=== PATIENT | male | born 1945 | race Caucasian/White ===

== ENCOUNTER 2016-12-27 05:25 | Day surgery (SDC) | payer OTHER ==
[2016-12-27] MEDS ORDERED: METOPROLOL TARTRATE 25 MG TAB PO PRN (05:45)
[2016-12-27] MEDS ORDERED: CHLORHEXIDINE GLUCONATE 2 % 1 PACK (2 CLOTHS) TOPICAL PRN (05:45)
[2016-12-27] MEDS ORDERED: INSULIN HUMAN REGULAR 1,000 UNITS/10 ML VIAL SQ PRN (05:45)
[2016-12-27] MEDS ORDERED: SODIUM CHLORID 0.9% 500 ML IV PRN (05:45)
[2016-12-27] MEDS ORDERED: POVIDONE IODINE 5% (ANTISEPSIS KIT) 4 APPLICATIONS EACH NARE PRN (05:45)
[2016-12-27] MEDS ORDERED: LACTATED RINGER'S 1000 ML IV PRN (05:45)
[2016-12-27] MEDS ORDERED: WARF-23 PO (06:06)
[2016-12-27] MEDS ORDERED: CARV6.252 PO (06:06)
[2016-12-27] MEDS ORDERED: OMEP20TA PO (06:06)
[2016-12-27] MEDS ORDERED: FURO40TA PO (06:06)
[2016-12-27] MEDS ORDERED: SIMV20TA PO (06:06)
[2016-12-27] MEDS ORDERED: ALBU6.7H INH (06:06)
[2016-12-27] MEDS ORDERED: BENA25TA3 PO (06:06)
[2016-12-27] MEDS ORDERED: WARF-21 PO (06:06)
[2016-12-27] MEDS ORDERED: TRIA0.022 TOPICAL (06:06)
--- NOTE | 2016-12-27 07:32 | EKG ---
Date Performed: 12/27/2016 Time Performed: 06:23:24 PTAGE: 70 years EKG: Sinus rhythm . Prolonged QT interval Poor R wave progression - probable normal variant Inferior/lateral ST-T fraser es are nonspecific Borderline ECG NO PREVIOUS TRACING DOCTOR: Yaw Guidry Interpretating Date/Time 12/27/2016 07:31:40
[2016-12-27] MEDS ORDERED: PROPOFOL 200 MG/20 ML AMP IV ONE (09:53)
--- NOTE | 2017-01-03 08:04 | ETE ---
Study Study Date:12/27/2016 STUDY CONCLUSIONS SUMMARY - Left ventricle: The cavity size was normal. Wall thickness was normal. Systolic function was moderately to severely reduced. The estimated ejection fraction was in the range of 30% to 35%. Diffuse hypokinesis. - Aortic valve: Valve heavily calcified and "shaggy" in appearance. Old vegetation cannot be excluded. Cusp separation was reduced. Cannot exclude vegetation. Transvalvular velocity was increased less than expected, due to low cardiac output. There was moderate to severe stenosis. Mean gradient: 24mm Hg (S). Valve area: 0.7cm^2. Valve area: 0.55cm^2 (Vmax). - Mitral valve: No evidence of vegetation. Mild regurgitation. - Left atrium: No evidence of thrombus in the atrial cavity or appendage. - Right atrium: No evidence of thrombus in the atrial cavity or appendage. - Tricuspid valve: No evidence of vegetation. - Pulmonic valve: No evidence of vegetation. If LV function is below 40, please consider prescribing an ACEI or ARB or document rationale for non-use. PROCEDURE DATA Consent: The risks, benefits, and alternatives to the procedure were explained to the patient and informed consent was obtained. Procedure: Initial setup. The patient was brought to the laboratory in the fasting state. Intravenous access was obtained. Surface ECG leads and pulse oximetric signals were monitored. Sedation. Deep sedation was administered by anesthesiology. Transesophageal echocardiography. Topical anesthesia was obtained using viscous lidocaine. A transesophageal probe was inserted by the attending mortgage originator. Image quality was good. Study completion: All IVs inserted during the procedure were removed. The patient tolerated the procedure well. There were no complications. Transesophageal echocardiography. 2D, complete spectral Doppler, and color Doppler. CARDIAC ANATOMY LEFT VENTRICLE: The cavity size was normal. Wall thickness was normal. Systolic function was moderately to severely reduced. The estimated ejection fraction was in the range of 30% to 35%. Diffuse hypokinesis. AORTIC VALVE: Valve heavily calcified and "shaggy" in appearance. Old vegetation cannot be excluded. Trileaflet; severely thickened, moderately calcified leaflets. Cusp separation was reduced. Cannot exclude vegetation. Doppler: Transvalvular velocity was increased less than expected, due to low cardiac output. There was moderate to severe stenosis. No significant regurgitation. Valve area: 0.7cm^2. Valve area: 0.55cm^2 (Vmax). Mean gradient: 24mm Hg (S). Peak gradient: 38mm Hg (S). Aorta: - There was no atheroma. There was no evidence for dissection. Aortic root: The aortic root was not dilated. Ascending aorta: The ascending aorta was normal in size. Aortic arch: The aortic arch was normal in size. Descending aorta: The descending aorta was normal in size. MITRAL VALVE: Structurally normal valve. Leaflet separation was normal. No evidence of vegetation. Doppler: Mild regurgitation. LEFT ATRIUM: The atrium was normal in size. No evidence of thrombus in the atrial cavity or appendage. The appendage was morphologically a left appendage, multilobulated, and of normal size. Emptying velocity was normal. RIGHT VENTRICLE: The cavity size was normal. Wall thickness was normal. Systolic function was normal. PULMONIC VALVE: Structurally normal valve. No evidence of vegetation. TRICUSPID VALVE: Structurally normal valve. Leaflet separation was normal. No evidence of vegetation. Doppler: Trace regurgitation. PULMONARY ARTERY: The main pulmonary artery was normal-sized. RIGHT ATRIUM: The atrium was normal in size. No evidence of thrombus in the atrial cavity or appendage. The appendage was morphologically a right appendage. PERICARDIUM: There was no pericardial effusion. BASIC MEASUREMENTS ADULT NORMAL Aortic valve Leaflet separation 18 mm 1526 BASIC MEASUREMENTS ADULT NORMAL Aortic valve Leaflet separation 18 mm 15-26 DOPPLER MEASUREMENTS ADULT NORMAL Aortic valve Peak velocity, S 310 cm/s Mean velocity, S 228 cm/s VTI, S 64.1 cm Mean gradient, S 24 mm Hg Peak gradient, S 38 mm Hg Valve area 0.7 cm^2 Valve area, Vmax 0.55 cm^2 LEGEND: Mean values are shown as u=mean value. Asterisk (*) alvarado values outside specified normal range. Prepared and signed by Ludin Rosenbaum [id number]
== END 2016-12-27 09:10 | disposition home or self-care (01) ==
LOC: HSDC 05:25 → HDIC 05:25 → HSDC 09:10
PROVIDERS: ATTEND Nuclear Medicine Nuclear Cardiology
DX: I35.0 Nonrheumatic aortic (valve) stenosis (principal); I47.2 Ventricular tachycardia; I42.9 Cardiomyopathy, unspecified; I50.20 Unspecified systolic (congestive) heart failure; I26.99 Other pulmonary embolism without acute cor pulmonale; I10 Essential (primary) hypertension; Z79.01 Long term (current) use of anticoagulants; E78.5 Hyperlipidemia, unspecified
CPT/HCPCS: 93005; 93312; 93320; 93325

== ENCOUNTER 2017-01-29 05:41 | Day surgery (SDC) | payer OTHER ==
[~2017-01-29] VITALS: Ht 177.8 cm; Wt 118.2 kg
[~2017-01-29 05:41] MED LIST: ALBU6.7H INH; BENA25TA3 PO; CARV6.252 PO; FURO40TA PO; OMEP20TA PO; SIMV20TA PO; TRIA0.022 TOPICAL; WARF-21 PO; WARF-23 PO
[2017-01-29 06:56] LABS: AUTOMATED NEUTROPHIL # 3.3 TH/MM3 (1.8-7.7); BASOPHIL % 0.3 % (0.0-2.0); EOSINOPHIL # 0.1 TH/MM3 (0-0.4); EOSINOPHIL % 1.8 % (0.0-4.0); HEMATOCRIT 37.5 % (39.0-51.0); HEMO FLAGS DIFF FINAL; LYMPH % 29.6 % (9.0-44.0); LYMPHOCYTE # 1.6 TH/MM3 (1.0-4.8); MEAN CELL VOLUME 81.8 FL (80.0-100.0); MEAN CORPUSCULAR HEMOGLOBIN 27.9 PG (27.0-34.0); MEAN CORPUSCULAR HGB CONC 34.1 % (32.0-36.0); MONO % 8.2 % (0.0-8.0); NEUT % 60.1 % (16.0-70.0); PLATELET COUNT 176 TH/MM3 (150-450); RED BLOOD COUNT 4.58 MIL/MM3 (4.50-5.90); RED CELL DISTRIBUTION WIDTH 14.9 % (11.6-17.2); WHITE BLOOD COUNT 5.5 TH/MM3 (4.0-11.0)
[2017-01-29 07:05] LABS: APTT (PATIENT) 28.5 SEC (24.3-30.1); INTERNATIONAL NORMALIZED RATIO 1.1 RATIO; PROTHROMBIN TIME - PATIENT 11.9 SEC (9.8-11.6)
[2017-01-29 07:14] LABS: BICARBONATE 28.5 MEQ/L (21.0-32.0); POTASSIUM 3.5 MEQ/L (3.5-5.1)
[2017-01-29 07:47] VITALS: BP 114/78; PULSE 73; RESP 16; TEMP 97.9; O2SAT 100
[2017-01-29] MEDS ORDERED: DIPH25CA PO (07:53)
[2017-01-29] MEDS ORDERED: diphenhydrAMINE HCL 50 MG CAP ONE (09:19)
[2017-01-29] MEDS ORDERED: HEPARIN-NS/PF INJ 500 ML ONE (09:31)
[2017-01-29] MEDS ORDERED: MIDAZOLAM HCL 2 MG/2 ML VIAL ONE (09:32)
--- NOTE | 2017-01-29 11:23 | CATHPROC ---
[employer] HIS Report Study Information Study Number Admission Scheduled Start Study Start [id number] Jan 29 2017 5:41AM 01/29/2017 Jan 29 2017 8:53AM [place] Service Cardiac Catheterization Admit Source Facility Department Other [facility] - Principal Accounts Clerk Physician and Clinical Staff Initial MD Marshall, Felipe Striker Offnicholas Colmenares RN, Thomas Other cathlab, cathlab Recorder Jude Escalona RCIS(BS) Scrub Carly Freed,RT(R) Procedures Performed Procedure Location (Site) Vessel Name Coronary Angiograms LCA Left Coronary Coronary Angiograms RCA Right Coronary Wire insertion Fem Art (right) Femoral Art Equipment Time Pile Driver Operator Description Size Mfg Part Number Used/Scraped PERCLOSE, PRO GLIDE CLOSER 10:48 [employer] FR 6 21358 *[id number] Used DEVICE PERCLOSE, PRO GLIDE CLOSER 10:48 [employer] FR 6 [id number] *[id number] Used DEVICE [id number] 09:33 ESTRELLA CAGLE SWAN GABRIELLE CATHETER FR 7 Used *[id number] TRANSDUCER, TRUWAVE [id number] 09:33 ESTRELLA CAGLE * Used W/STOCKCOCK *[id number] TRANSDUCER, TRUWAVE [id number] 09:33 ESTRELLA CAGLE * Used W/STOCKCOCK *[id number] 10:48 [employer] VASCADE, FR6 CLOSURE SYSTEM FR 6\7 Used *[id number]-502-10.0- INTRODUCER SET, 09:33 [employer] FR 5 SC-NT-U-SST Used MICROPUNCTURE, STIFFENED *[id number] 534-545T *[id number] 534-546T *1873220 534-548T *[id number] 534-520T *[id number] 534-521T *[id number] WIRE, HYDROSTEER 260CM [id number] 10:36 DAIG/ST. [employer] 260CM Used STRAIGHT GLIDE *[id number] WIRE, AMPLATZ SUPER STIFF 10:30 [employer] .035 31372 *[id number] Used STRT [id number] 09:33 [employer] INDUSTRIES PACK, CCL CUSTOM * Used *[id number] PSI-6F- 09:56 [employer] MEDICAL SHEATH, FR6.5 PRELUDE 11CM FR 6.5 038ACT Used *[id number] [id number]-6F-11- 10:08 [employer] MEDICAL SHEATH, FR6.5 PRELUDE 11CM FR 6.5 038ACT Used *[id number] 10:15 [employer] MEDICAL WIRE, 3MMJ .025 * Used *[id number] 09:33 [employer] MEDICAL WIRE, 3MMJ .035 180CM 180CM Used *[id number] 09:33 [employer]IC MANIFOLD, 2 PORT * Used *[id number] 09:33 [employer] MANIFOLD, 4 PORT * Used *0395550 09:33 [employer] OMNIPAQUE, 350 MG, 150ML 150ML [id number] Used [id number] 09:33 [facility] BLANKET,WARM AIR CCL * Used *[id number] SHEATH, FR6 TRANSRADIAL 09:56 [employer] FR 6 RM*[id number] Used SLENDER 10CM 09:33 [employer] MEDICAL SHEATH, FR7 TERUMO (10CM) FR 7 [id number] Used 10:00 [employer] PIGTAIL DUAL LUMEN CATHETER FR 6 5540 *[id number] Used Equipment Model, Serial, Lot Number and Expiration Data Description Model Number Serial Number Lot Number Expiration Da te SHEATH, FR6.5 PRELUDE 11CM [id number] 12-16-2019 SHEATH, FR6.5 PRELUDE 11CM [id number] 12-16-2019 History: Current Medications Medication Dosage/Unit Route Frequency Last Date/Time Taken Statins (any) Beta Ang Coumadin History: Allergies Allergy Reaction Losartan History: Risk Factors Family History of Hypertension Dyslipidemia Previous KS Previous Heart Failure Premature CAD Yes Yes Yes No Yes Prior Valve Prior PCI Prior CABG Surgery No No No Cerebrovascular Peripheral Artery Chronic Lung On Dialysis Diabetes Disease Disease Disease No No No No No History: Stress Tests Stress or Imaging Studies Performed No History: Other Disease Selection Items HTN History: Other Current Smoker Method Quit Packs a Day Years Used Pack Years No Cigarettes 40 Years Ago 1 7 7 Labs Hgb (g/dl) Hct (%) WBC (l/cumm) Platelets (thousands) 12.00-18.00 37.00-55.00 4.80-10.80 140.00-450.00 12.8 37.5 5.5 176 Glucose (mg/dl) BUN (mg/dl) Creatinine (mg/dl) BUN:Creatinine (1:x) 60.00-110.00 8.00-20.00 0.10-9.00 10.00-20.00 98 15 0.9 16.7 Na (meq/l) K (meq/l) 138.00-146.00 3.80-5.10 141 3.5 INR (PTT:PT) 0.50-2.00 1.1 CPK-MB (ng/ML) 0.00-7.00 Not Drawn Medication Medication Total Dose (Bolus/Oral) Medication Total Dosage/Unit 1% XYLOCAINE 20 mL FENTANYL 100 mcg NTG (IC) 200 mcg VERSED 2 mg Medications (Bolus/Oral) Medication Time Given Dosage/Unit Administered By Reason VERSED 01/29/2017 10:03:18 AM 2 mg Darrian WILKERSON, Thomas 2 mg VERSED given in lab by Thomas Colmenares RN in Left Wrist via Peripheral IV. Ordered by Mary Marshall. FENTANYL 01/29/2017 10:03:28 AM 50 mcg Thomas Colmenares RN 50 mcg FENTANYL given in lab by Thomas Colmenares RN in Left Wrist via Peripheral IV. Ordered by Felipe Stroud. 1% XYLOCAINE 01/29/2017 10:04:32 AM 20 mL Felipe Marshall 20 mL 1% XYLOCAINE given in lab by Felipe Marshall in Right Groin via Subcutaneous. Ordered by Felipe Jain. NTG (IC) 01/29/2017 10:24:17 AM 200 mcg Felipe Marshall 200 mcg NTG (IC) given in lab by Felipe Marshall via Intra-coronary. Ordered by Felipe Marshall. FENTANYL 01/29/2017 10:48:00 AM 50 mcg Felipe Marshall 50 mcg FENTANYL given in lab by Felipe Marshall in Left Wrist via Peripheral IV. Ordered by Felipe Smith. Medication (Drip) Medication Time Given Dosage/Unit Concentration/Unit Diluent (ml) Solution IV Solutions 01/29/2017 9:26:51 AM 0 mL (IV) 500 NaCl .9 Patient arrived on IV Solutions given by dario bishop in Left Wrist via Peripheral IV. Pump/Drip Flow = 20 ml/hr using NaCl .9. Ordered by Felipe Jain. Initial Case Assessment Cardiovascular HR Rhythm NIBP Chest Pain 70 sinus 143/84 0 Edema Present Skin color Skin None Normal Warm Dry Circulatory - Right Pulses Dorsalis Pedis Femoral 1 2 Scale (0,1,2,3,4,d) Circulatory - Left Pulses Dorsalis Pedis Femoral 1 2 Scale (0,1,2,3,4,d) Neurological State Oriented to time-place- Alert Moves all extremities person Respiration - General Respiration Rate SpO2 (%) (B/min) 15 99 Final Case Assessment Cardiovascular HR Rhythm NIBP Chest Pain 68 sinus 119/77 0 Edema Present Skin color Skin None Normal Warm Dry Circulatory - Right Pulses Dorsalis Pedis Femoral 1 2 Scale (0,1,2,3,4,d) Circulatory - Left Pulses Dorsalis Pedis Femoral 1 2 Scale (0,1,2,3,4,d) Neurological State Oriented to time-place- Alert Moves all extremities person Respiration - General Respiration Rate SpO2 (%) (B/min) 15 99 Chronological Log Time Study Chronological Log 9:26:41 Patient arrived via Bed. 9:26:42 Patient Name, D.O.B, / Armband Verified By R.N. 9:26:43 Consent signed by the physician and the patient and verified by the Principal Accounts Clerk staff. 9:26:43 Pre-op and post- op instructions given; patient acknowledges understanding of instructions. Verbal Stimulation=~VERBAL~ Physical Stimulation=~PHYSICAL~ Airway=~AIRWAY~ Respiration=~RESPIR ATION~ 9:26:44 TOTAL=~TOTAL~. (0=absent, 1=limited, 2=present) 9:26:45 Presedation assessment performed by Principal Accounts Clerk RN. 9:26:45 Immediate Presedation assesment performed by physician. 9:26:46 Patient has been NPO for More than 6Hrs. 9:26:47 Skin Breakdown- 9:26:48 Patient Warmer Placed on the Table. 9:26:48 Cici Prominences Protected 9:26:50 A # 20 IV was noted in the Wrist (left). Grade = 0 Patient arrived on IV Solutions given by cathlab cathashlie in Left Wrist via Peripheral IV. Pump /Drip Flow = 20 ml/hr 9:26:51 using NaCl .9. Ordered by Felipe Marshall. 9:26:51 History and physical on the chart or being dictated. Vitals capture started with the following parameters, Patient=Adult, Interval=15 min, Initial P ikrnlfg=155 mmHg, 9:32:10 Deflation Rate=5 mmHg 9:32:11 Reference ECG taken Assessment: Initial Case, HR=70 BPM, Rhythm=sinus, DRUK=398/84 mmhg, Chest Pain=0, Edema=None, Color=Normal, Skin = Warm, Dry Right Pulses: Christian Ped=1, Femoral=2 9:32:15 Left Pulses: Christian Ped=1, Femoral=2 Neurological: State=Alert, Ox3, NI Respiration: Resp=15 B/min, SpO2=99 % 9:33:39 HR=73 bpm, YXTU=340/84 mmhg, VxI6=006.0 %, Resp=8 B/min, Pain=0, Brendon=10, Hicks=2 9:37:47 HR=68 bpm, ZTRO=209/81 mmhg, SpO2=95 %, Resp=15 B/min, Pain=0, Brendon=10, Hicks=2 9:42:48 HR=68 bpm, IPJU=676/79 mmhg, SpO2=99.0 %, Resp=16 B/min, Pain=0, Brendon=10, Hicks=2 9:47:47 HR=74 bpm, GNIC=093/78 mmhg, SpO2=99 %, Resp=15 B/min, Pain=0, Brendon=10, Hicks=2 9:48:19 Bilateral groins prepped with 2% chlorhexidine, and with a 3 min. waiting time. 9:51:02 MD arrived. 9:51:16 Pressure channel 1 zeroed. 9:52:48 HR=70 bpm, VJDL=383/78 mmhg, SpO2=99.0 %, Resp=14 B/min, Pain=0, Brendon=10, Hicks=2 9:54:16 Immediate Presedation assesment performed by physician. 9:57:47 HR=71 bpm, LQEA=989/83 mmhg, SpO2=98.0 %, Resp=18 B/min, Pain=0, Brendon=10, Hicks=2 9:58:28 Pressure channel 2 zeroed. 10:02:53 HR=74 bpm, DTVJ=233/79 mmhg, SpO2=98.0 %, Resp=17 B/min, Pain=0, Brendon=10, Hicks=2 10:03:18 2 mg VERSED given in lab by Thomas Colmenares RN in Left Wrist via Peripheral IV. Ordered by Felipe Hickey. 10:03:28 50 mcg FENTANYL given in lab by Thomas Colmenares RN in Left Wrist via Peripheral IV. Ordered by Felipe Marshall. Time Out. Correct patient, correct procedure,correct physician, ,power injector not loaded with contrast with surgical 10:04:30 team present. Time Out Concurred by , individual staff in procedure 10:04:31 Case Start 20 mL 1% XYLOCAINE given in lab by Felipe Marshall in Right Groin via Subcutaneous. Ordered b vasu Marshall, 10:04:32 Felipe. 10:07:14 Access site was Right Femoral Artery. 10:07:52 HR=71 bpm, WSVB=826/74 mmhg, SpO2=93.0 %, Resp=19 B/min, Pain=0, Brendon=10, Hicks=2 10:08:09 A SHEATH, FR6.5 PRELUDE 11CM FR 6.5 was advanced into the Fem Art (right) using the Percuta neous technique. 10:10:25 Access site was Right Femoral Vein. 10:10:55 A SHEATH, FR7 TERUMO (10CM) FR 7 was advanced into the Fem Art (right) using the Percutaneo us technique. 10:11:07 A SWAN GABRIELLE CATHETER FR 7 was inserted via Fem Vein (right) 10:12:44 HR=74 bpm, UYGW=371/75 mmhg, SpO2=93 %, Resp=19 B/min, Pain=0, Brendon=10, Hicks=2 10:15:00 A WIRE, 3MMJ .025 * was inserted via Fem Art (right). Recorded Pressure: PCW, HR=70, Condition=Condition 1 10:17:03 (Pulmonary Capillary Wedge) PCW 1715/14 Recorded Pressure: MPA, HR=71, Condition=Condition 1 10:17:21 (Main Pulmonary Artery) MPA 36/17/25 10:17:50 HR=71 bpm, QRXL=562/69 mmhg, SpO2=93.0 %, Resp=14 B/min, Pain=0, Brendon=10, Hicks=2 10:18:02 Saturation: Site=PA (Pulmonary Artery) , O2=72.9 %, Hgb=12.8 gm/dl, Condition=Condition 1. Used in calculation. 10:18:09 Saturation: Site=Ao (Aorta) , O2=94.3 %, Hgb=12.8 gm/dl, Condition=Condition 1. Used in tommy culation. Recorded Pressure: RV, HR=85, Condition=Condition 1 10:18:30 (Right Ventricle) RV 39/7/14 Recorded Pressure: RA, HR=74, Condition=Condition 1 10:18:44 (Right Atrium) RA 1311/10 10:18:53 Saturation: Site=RA (Right Atrium) , O2=75.9 %, Hgb=12.8 gm/dl, Condition=Condition 1. Used in calculation. 10:19:20 [place] Gabrielle Catheter Removed A JR 4.0 INFINITI CATHETER FR 5 was advanced over a wire. OMNIPAQUE, 350 MG, 150ML 150ML was us ed for 10:20:57 injections. 10:22:08 The RCA was injected and visualized at various angles. OMNIPAQUE, 350 MG, 150ML 150ML used . Recorded Pressure: Ao, HR=69, Condition=Condition 1 10:22:30 (Aorta) Ao 109/68/84 10:22:49 HR=72 bpm, CAEM=887/72 mmhg, SpO2=94.0 %, Resp=19 B/min, Pain=0, Brendon=10, Hicks=2 10:24:17 200 mcg NTG (IC) given in lab by Felipe Marshall via Intra-coronary. Ordered by Felipe Stroud. 10:25:38 Catheter was removed A JL 4.0 INFINITI CATHETER FR 5 was advanced over a wire. OMNIPAQUE, 350 MG, 150ML 150ML was us ed for 10:25:39 injections. 10:26:21 The LCA was injected and visualized at various angles. OMNIPAQUE, 350 MG, 150ML 150ML used . 10:27:48 HR=79 bpm, UHAC=185/71 mmhg, SpO2=92.0 %, Resp=19 B/min, Pain=0, Brendon=10, Hicks=2 10:30:10 Catheter was removed A AL 1 INFINITI CATHETER FR 5 was advanced over a wire. OMNIPAQUE, 350 MG, 150ML 150ML was used for 10:30:10 injections. 10:32:47 HR=72 bpm, QVDT=642/69 mmhg, SpO2=95 %, Resp=20 B/min, Pain=0, Brendon=10, Hicks=2 10:33:06 Wire removed 10:33:15 A WIRE, AMPLATZ SUPER STIFF STRT .035 was inserted via Fem Art (right). 10:35:34 Wire removed 10:36:43 Catheter was removed A AR MOD INFINITI CATHETER FR 5 was advanced over a wire. OMNIPAQUE, 350 MG, 150ML 150ML was us ed for 10:36:50 injections. 10:36:57 A WIRE, HYDROSTEER 260CM STRAIGHT GLIDE 260CM was inserted via Fem Art (right). 10:37:45 Wire removed 10:37:47 Catheter was removed 10:37:48 HR=71 bpm, EATO=775/72 mmhg, Resp=17 B/min, Pain=0, Brendon=10, Hicks=2 A AL 2 INFINITI CATHETER FR 5 was advanced over a wire. OMNIPAQUE, 350 MG, 150ML 150ML was used for 10:38:56 injections. 10:39:01 A WIRE, HYDROSTEER 260CM STRAIGHT GLIDE 260CM was inserted via Fem Art (right). 10:40:43 The previous wire was exchanged for a WIRE, AMPLATZ SUPER STIFF STRT .035. After removing the current catheter a PIGTAIL DUAL LUMEN CATHETER FR 6 was advanced over a WIRE , AMPLATZ 10:41:38 SUPER STIFF STRT .035. 10:42:47 Pressure channel 2 zeroed. 10:42:51 HR=78 bpm, BLRX=704/74 mmhg, SpO2=96.0 %, Resp=16 B/min, Pain=0, Brendon=10, Hicks=2 Recorded Pressure: LV, Ao, HR=76, Condition=Condition 1 10:43:08 (Left Ventricle) LV 151/11/19, (Aorta) Ao -4/-4/-4 Recorded Pressure: LV, Ao, HR=74, Condition=Condition 1 10:44:08 (Left Ventricle) LV 157/12/20, (Aorta) Ao 114/70/88 10:44:45 Catheter was removed 10:46:23 An injection in the Fem Art (right) was made through the SHEATH, FR6.5 PRELUDE 11CM FR 6.5. 10:47:50 HR=71 bpm, LWKO=636/76 mmhg, SpO2=95 %, Resp=12 B/min, Pain=0, Brendon=10, Hicks=2 10:48:00 50 mcg FENTANYL given in lab by Felipe Marshall in Left Wrist via Peripheral IV. Ordered by Felipe Marshall. 10:48:02 VASCADE, FR6 CLOSURE SYSTEM FR 6\7 placement in the Fem Vein (right) 10:51:51 PERCLOSE, PRO GLIDE CLOSER DEVICE FR 6 placement in the Fem Art (right) 10:52:53 HR=71 bpm, EOSY=093/77 mmhg, SpO2=94.0 %, Resp=15 B/min, Pain=0, Brendon=10, Hicks=2 10:54:05 Case End Assessment: Final Case, HR=68 BPM, Rhythm=sinus, GEYX=940/77 mmhg, Chest Pain=0, Edema=None, Color=Normal, Skin = Warm, Dry Right Pulses: Christian Ped=1, Femoral=2 10:54:10 Left Pulses: Christian Ped=1, Femoral=2 Neurological: State=Alert, Ox3, NI Respiration: Resp=15 B/min, SpO2=99 % 10:54:47 Sterile dressing applied to site 10:54:47 No case complications noted. 10:54:48 Cine recording checked. 10:54:49 Bedside Report will be given. 10:54:51 Implantable Device card placed in patient's chart. 10:54:52 Implantable Device card placed in patient's chart. 10:54:53 Verbal Stimulation=2 Physical Stimulation=2 Airway=2 Respiration=2 TOTAL=8. (0=absent, 1=l imited, 2=present) 10:55:02 A Left and Right Heart Cath was performed. 10:57:52 HR=70 bpm, TGHF=547/71 mmhg, SpO2=96.0 %, Resp=16 B/min, Pain=0, Brendon=10, Hicks=2 10:57:59 Vitals capture stopped. 11:03:02 Patient moved to [facility] End Study - Contrast Media Used In Study Contrast Total Opened (mL) Total Used (mL) Total Wasted (mL) Omnipaque 35 35 0 End Study - Maximum Contrast Load Max Contrast Load (mL) 656.6 End Study - Radiation Exposure Fluoro Time (minutes) 14.5 End Study - Patient Disposition Complications Transferred To Interventional Outcome No Principal Accounts Clerk Holding No attempt made
[2017-01-29] MEDS ORDERED: ONDANSETRON HCL 4 MG/2 ML VIAL IV PRN (11:30)
[2017-01-29] MEDS ORDERED: ATROPINE SULFATE 1 MG/ML VIAL IV PRN (11:30)
--- NOTE | 2017-01-29 11:49 | MA ---
cc: DEBCHAITANYA Sagastume DATE: 01/29/2017 DATE OF : 1945 PROCEDURE PERFORMED 1. Right heart catheterization. 2. Selective right and left coronary angiography. 3. Left ventricular pressures. INDICATION Symptomatic aortic stenosis/Depressed LV systolic function. PROCEDURE DESCRIPTION Consent signed. The patient was brought into the cardiac experimental machining lab manager in a fasting state. The right groin was prepped and draped in a sterile fashion. Using 1% lidocaine for local anesthesia and a micropuncture kit, a 6-Mongolian sheath was inserted into the right common femoral artery and right common femoral vein. Selective coronary artery angiography was performed to confirm position of the sheath. Then selective right and left coronary angiography was performed with JR4 and JL4 diagnostic catheters. Diagnostic angiogram was taken in multiple views. Then an AL2 catheter over an Amplatz wire was used to cross into the ventricle. This was followed by exchanging the Amplatz with a dual-lumen angled pigtail catheter for simultaneous aortic and ventricular pressure recordings. We then proceeded with inserting a [place]-Jamarcus into the right femoral vein which was floated under fluoroscopy to wedge. This was followed by saturation recordings and recordings in wedge, main pulmonary artery, right ventricle and right atrium. The patient tolerated the procedure well without complications. Estimated blood loss less than 30 cc. Total contrast used 50 cc. The right groin access site was closed with a Perclose assist device and the vein with a Vascade closure device. RESULTS Right heart cath wedge pressure 12. Main pulmonary artery 36/17 with a mean of 25. Right ventricle 39/7 with a mean of 14. Right atrium 12/4/10 with a mean of 9. LEFT VENTRICLE The aortic pressure was 114/70 with a mean of 88. The left ventricular pressure was 157/12 with an LVEDP of 20. The mean gradient across the valve was 38. The peak gradient was 43. The calculated valve area was 1.1. ANGIOGRAPHY 1. The right coronary artery is a dominant vessel giving off the PDA. It has minimal luminal irregularities throughout. It has a 30% lesion in its proximal segment. We used intracoronary nitro with some dilation of this lesion. There is a patent RV branch and a posterolateral branch that was also patent. The PDA looks well. It has nonobstructive coronary artery disease and AMALIA-III flow. 2. The left main is patent with AMALIA-III flow. 3. The LAD is a transapical vessel. It has minimal luminal irregularities throughout, nonobstructive coronary artery disease, giving off three diagonal vessels. The first diagonal is a pretty prominent vessel which branches and gives to side branches to the lateral wall. The second diagonal is a small vessel as is the third diagonal. 4. The left circumflex artery has a 20% lesion proximally, has some mild calcification throughout. This artery consists of a long AV groove segment which has nonobstructive coronary artery disease as well as a prominent OM1 which is mildly calcified, has AMALIA-III flow and nonobstructive coronary artery disease. CONCLUSIONS 1. Normal coronary arteries showing nonobstructive coronary artery disease. 2. Moderate to severe aortic stenosis RECOMMENDATIONS Given that the patient has a low ejection fraction will corroborate this information by doing an echo today as well as dobutamine stress echo to see the gradients across the valve. He will go to the DOC unit for post-cath care and if stable he will be discharged home to follow-up with cardiothoracic surgery/ valve clinic for evaluation. MD JAEL Scott/NOLAN /11:30 AM /11:40 AM CISCO
[2017-01-29] MEDS ORDERED: DOBUTamine PREMIX DRIP 250 ML ONE (12:49)
[2017-01-29] MEDS ORDERED: METOPROLOL TARTRATE 5 MG/5 ML VIAL ONE (13:20)
[2017-01-29] MEDS ORDERED: diphenhydrAMINE HCL 50 MG CAP PO SCH (14:00)
[2017-01-29] MEDS ORDERED: NS 1000P @30 MLS/HR (KVO) IV SCH (14:00)
--- NOTE | 2017-01-29 14:23 | EKG ---
Date Performed: 01/29/2017 Time Performed: 07:52:02 PTAGE: 71 years EKG: Sinus rhythn Poor R wave progression - probable normal variant Nonspecific T wave changes A bnormal ECG NO SIGNIFICANT CHANGE FROM PRIOR ELECTROCARDIOGRAM. PREVIOUS TRACING : 12/27/2016 06.23 DOCTOR: Yaw Guidry Interpretating Date/Time 01/29/2017 14:22:41
[2017-01-29] MEDS ORDERED: IOHEXOL 350 MG/ML 100 ML BTL (for Cath Lab) OTHER ONE (14:57)
[2017-01-29] MEDS ORDERED: DOBUTamine 250 MG/D5W 250 ML PREMIX DRIP IV SCH (15:00)
--- NOTE | 2017-01-29 15:30 | PD.CAR.PN ---
CVT Progress Note Subjective/Hospital Course: RISK SCORES About the STS Risk Calculator Procedure: AV Replacement Risk of Mortality: 1.049% Morbidity or Mortality: 11.424% Long Length of Stay: 3.541% Short Length of Stay: 49.543% Permanent Stroke: 0.859% Prolonged Ventilation: 5.834% DSW Infection: 0.514% Renal Failure: 2.443% Reoperation: 6.186% Objective: Vital Signs Date Time Temp Pulse Resp B/P Pulse Ox O2 Delivery O2 Flow Rate FiO2 01/29/17 11:48 100 Room Air 01/29/17 07:47 97.9 73 16 114/78 100 Labs: Laboratory Tests Test 01/29/17 06:10 White Blood Count 5.5 TH/MM3 (4.0-11.0) Red Blood Count 4.58 MIL/MM3 (4.50-5.90) Hemoglobin 12.8 GM/DL (13.0-17.0) Hematocrit 37.5 % (39.0-51.0) Mean Corpuscular Volume 81.8 FL (80.0-100.0) Mean Corpuscular Hemoglobin 27.9 PG (27.0-34.0) Mean Corpuscular Hemoglobin 34.1 % Concent (32.0-36.0) Red Cell Distribution Width 14.9 % (11.6-17.2) Platelet Count 176 TH/MM3 (150-450) Mean Platelet Volume 8.6 FL (7.0-11.0) Neutrophils (%) (Auto) 60.1 % (16.0-70.0) Lymphocytes (%) (Auto) 29.6 % (9.0-44.0) Monocytes (%) (Auto) 8.2 % (0.0-8.0) Eosinophils (%) (Auto) 1.8 % (0.0-4.0) Basophils (%) (Auto) 0.3 % (0.0-2.0) Neutrophils # (Auto) 3.3 TH/MM3 (1.8-7.7) Lymphocytes # (Auto) 1.6 TH/MM3 (1.0-4.8) Monocytes # (Auto) 0.4 TH/MM3 (0-0.9) Eosinophils # (Auto) 0.1 TH/MM3 (0-0.4) Basophils # (Auto) 0.0 TH/MM3 (0-0.2) CBC Comment DIFF FINAL Differential Comment Prothrombin Time 11.9 SEC (9.8-11.6) Prothromb Time International 1.1 RATIO Ratio Activated Partial 28.5 SEC Thromboplast Time (24.3-30.1) Sodium Level 141 MEQ/L (136-145) Potassium Level 3.5 MEQ/L (3.5-5.1) Chloride Level 105 MEQ/L (98-107) Carbon Dioxide Level 28.5 MEQ/L (21.0-32.0) Anion Gap 8 MEQ/L (5-15) Blood Urea Nitrogen 15 MG/DL (7-18) Creatinine 0.93 MG/DL (0.60-1.30) Estimat Glomerular Filtration 80 ML/MIN (>89) Rate Random Glucose 98 MG/DL (74-106) Calcium Level 8.5 MG/DL (8.5-10.1) Result Diagram: 01/29/17 0610 01/29/17 0610 Eileen Forbes Jan 29, 2017 15:30
--- NOTE | 2017-01-29 15:35 | RADRPT ---
EXAM DATE/TIME: 01/29/2017 15:23 [facility] COMPARISON: No previous studies available for comparison. INDICATIONS : Status pre-op aortic valve replacement. No chest complaints. Evaluate for pneumonia, pneumothorax, or communicable diseases. MEDICAL HISTORY : None. SURGICAL HISTORY : None. ENCOUNTER: Initial ACUITY: 1 day PAIN SCORE: 0/10 LOCATION: chest FINDINGS: PA and lateral views of the chest demonstrate the lungs to be symmetrically aerated without evidence of mass, infiltrate or effusion. The cardiomediastinal contours are unremarkable. Osseous structure s are intact. CONCLUSION: No acute disease. Ralph Reeves MD FACR on January 29, 2017 at 15:33 Board Certified Radiologist. This report was verified electronically.
[2017-01-29] MEDS ORDERED: ENOX120P SQ (15:46)
[2017-01-29] MEDS ORDERED: ENOX100P SQ (15:57)
--- NOTE | 2017-01-29 18:00 | RADRPT ---
EXAM DATE/TIME: 01/29/2017 17:14 [facility] COMPARISON: No previous studies available for comparison. INDICATIONS : Preop aortic valve replacement. MEDICAL HISTORY : Congestive heart failure. Irregular heartbeat. Aortic stenosis. Heart murmur. Pulmonary embolism. SURGICAL HISTORY : None. ENCOUNTER: Initial ACUITY: 1 day PAIN SCORE: 0/10 LOCATION: Bilateral neck PEAK SYSTOLIC VELOCITIES (cm/sec): ICA/CCA RATIO: Right: 0.9 Left: 1.3 ICA: Right: 76.6 Left: 101.1 CCA: Right: 84.5 Left: 76.7 ECA: Right: 98.3 Left: 66.1 VERTEBRAL: Right: 46.5 antegrade Left: 36.5 antegrade Elevated flow velocities and ICA/CCA ratios have been found to correlate with increased degrees of vessel stenosis, calculated as percentage of diameter relative to a normal segment of distal ICA/CCA FINDINGS: RIGHT CAROTID: No significant stenosis is visualized. There is mild atherosclerotic plaquing. The waveforms are with in normal limits. LEFT CAROTID: No significant stenosis is visualized. There is moderate atherosclerotic plaquing. The waveforms are within normal limits. VERTEBRAL ARTERIES: Antegrade flow is seen in both vertebral arteries. MISCELLANEOUS: None. CONCLUSION: 1. Atherosclerotic plaquing of the carotid bifurcations. No hemodynamically significant carotid arter y stenosis identified. Marbin Reeves MD on January 29, 2017 at 17:57 Board Certified Radiologist. This report was verified electronically.
[2017-01-29 20:59] LABS: BLOOD, URINE NEG (NEG); COMMENT (UR) CULT NOT INDICATED; CULTURE IF INDICATED CULT NOT INDICATED; GLUCOSE,URINE NEG (NEG); KETONE, URINE NEG (NEG); NITRITE,URINE NEG (NEG); PH, URINE 5.5 (5.0-8.5); URINE COLOR YELLOW (YELLW/STRAW)
[2017-01-29 22:28] LABS: HEMOGLOBIN A1a 1.2 %; HEMOGLOBIN A1b 0.9 %; HEMOGLOBIN Ao 84.7 %; HEMOGLOBIN LA1C 1.8 %; HEMOGLOBIN P3 3.8 %
--- NOTE | 2017-01-30 10:37 | MB ---
cc: NESTOR ARELLANO MD DATE OF 1945 DATE OF CONSULTATION 01/29/2017 REASON FOR CONSULTATION A 71-year-old male of Dr. Rosenbaum, Dr. Veloz, Dr. Ivan Felix. History of aortic stenosis and also cardiomyopathy which he has been followed since age 39. He had rheumatic fever as a child. Has been followed periodically for his aortic stenosis and has had a decreasing or depressed LV function. His EF is now 35-40%. He underwent cardiac cath today by Dr. Veloz showing some minimal 40% stenosis in the RCA. Wedge pressure 12, RV pressures of 39/7, right atrial pressures of 12. The peak gradient of 43. He underwent dobutamine stress test which showed worsening gradient and velocities of 4.3. We were consulted to evaluate for aortic valve replacement secondary to severe aortic stenosis. The patient's only complaint is some fatigue. No symptoms of chest pain. PAST MEDICAL HISTORY Includes: 1. Aortic stenosis. 2. Hyperlipidemia. 3. Hypertension. 4. Nonischemic cardiomyopathy. 5. History of pulmonary embolism where he has been on Coumadin. 6. Congestive heart failure. 7. Paroxysmal ventricular tachycardia. 8. No inducible arrhythmia on EP study 2009. PAST SURGICAL HISTORY He has had left shoulder surgery. ALLERGIES INCLUDE LOSARTAN. MEDICATIONS Home medications include: 1. Benadryl. 2. Coreg. 3. Lasix. 4. Proventil. 5. Simvastatin. 6. Oral Coumadin. FAMILY HISTORY Mother from heart failure at age 80. Father at 62 of an MT. He is 1 of 14 children. Five of his brothers in their late 30s, 40s and 50s with an MT. He has two sisters that are relatively healthy. Two living brothers. SOCIAL HISTORY Remote tobacco history. He smoked for 9 years, quit 40 years ago. No alcohol. . No children. REVIEW OF SYSTEMS GENERAL: No night sweats, fever, heat and cold intolerance. Skin SKIN: No psoriasis, itching or hives. HEENT: No blurred vision, hearing loss. RESPIRATORY: Occasional shortness of breath. CARDIOVASCULAR: No chest pain. No paroxysmal nocturnal dyspnea. Some occasional fatigue. GASTROINTESTINAL: No diarrhea, vomiting. GENITOURINARY: No burning, frequency, urgency. CENTRAL NERVOUS SYSTEM: No history of TIA, CVA, seizure disorder. PHYSICAL EXAMINATION VITAL SIGNS: On exam blood pressure 114/78, heart rate 70, temperature max 97.9. GENERAL: Patient is awake, alert in no acute distress. HEENT: Head is normocephalic, atraumatic. Pupils equal and reactive. Oral mucosa pink, moist. NECK: Supple. No JVD. CARDIOVASCULAR: Heart sounds S1-S2. Regular rate and rhythm. Positive for a grade 2/6 systolic murmur. LUNGS: Clear to auscultation. No wheezes, rales or rhonchi. ABDOMEN: Soft, nontender. No masses or organomegaly. EXTREMITIES: No cyanosis, clubbing or edema. LABORATORY FINDINGS Shows sodium 141, potassium 3.5, BUN of 15, creatinine 0.93. INR 1.1. Hemoglobin 12, hematocrit 37, white cell count 5.5, platelet count 176. EKG shows sinus rhythm with some poor R-wave progression, otherwise unremarkable. IMPRESSION A 71-year-old male with known aortic stenosis, underwent cardiac cath with minimal nonobstructive coronary artery disease, followed by dobutamine stress test showing evidence of severe aortic stenosis. We have been consulted to evaluate for aortic valve replacement. The films have been reviewed by Dr. Nestor Arellano. Plan will be for aortic valve replacement 2016. In the meantime will discuss his Coumadin. He states he has been on this since November 2016 and will need to have some coverage for that. In the meantime he is to continue all other medications and further planning per Dr. Nestor Arellano. Dictated by: TEGAN Berg MD ANITA Singh/MARY /3:38 PM /10:38 AM [facility]
--- NOTE | 2017-02-03 14:20 | ECHRPT ---
Indication: Rheumatic aortic stenosis CONCLUSIONS The ventricle is seen best in the subcostal view of this technically difficult study. It appears to be approximately normal to upper normal size left ventricle. Possible increased wall thickness due to t he aortic stenosis over a long period of time. There appears to be an overall left ventricular hypokinesis wit h an EF in the range of 30-35%. Moderate to severe thickening of the aortic valve leaflets. No aortic insufficiency. Moderate to sev ere aortic stenosis. Aortic valve area is 0.53 cm. Aortic valve mean gradient is 37.7 mmHg. BP: 125 / 79 HR: Rhythm: Sinus MEASUREMENTS (Male / Female) Normal Values Technical Quality:Very technically difficult study 2D ECHO LV Diastolic Diameter PLAX 4.4 cm 4.2 - 5.9 / 3.9 - 5.3 cm LV Systolic Diameter PLAX 3.8 cm IVS Diastolic Thickness 1.3 cm 0.6 - 1.0 / 0.6 - 0.9 cm LVPW Diastolic Thickness 1.3 cm 0.6 - 1.0 / 0.6 - 0.9 cm LV Relative Wall Thickness 0.6 LVOT Diameter 2.4 cm Aortic Root Diameter 3.2 cm LA Systolic Diameter LX 2.5 cm 3.0 - 4.0 / 2.7 - 3.8 cm DOPPLER AV Peak Velocity 405.7 cm/s AV Peak Gradient 65.8 mmHg AV Mean Gradient 37.7 mmHg AV Velocity Time Integral 91.7 cm LVOT Peak Velocity 36.8 cm/s LVOT Peak Gradient 0.5 mmHg LVOT Velocity Time Integral 10.8 cm AV Area Cont Eq vti 0.5 cm AV Area Cont Eq pk 0.4 cm Mitral E Point Velocity 63.2 cm/s Mitral A Point Velocity 71.6 cm/s Mitral E to A Ratio 0.9 PV Peak Velocity 60.2 cm/s PV Peak Gradient 1.4 mmHg FINDINGS LEFT VENTRICLE The ventricle is seen best in the subcostal view of this technically difficult study. It appears to be approximately normal to upper normal size left ventricle. Possible increased wall thickness due to t he aortic stenosis over a long period of time. There appears to be an overall left ventricular hypokinesis wit h an EF in the range of 30-35%. AORTIC VALVE Moderate to severe thickening of the aortic valve leaflets. No aortic insufficiency. Moderate to sev ere aortic stenosis. Aortic valve area is 0.53 cm. Aortic valve mean gradient is 37.7 mmHg. Felipe Veloz-Hermelidna MD (Electronically Signed) Final Date:03 February 2017 14:28
--- NOTE | 2017-02-04 11:40 | RSPPFT ---
DATE OF PROCEDURE: 01/29/17 COMMENTS: Spirometry with FVC of 2.4, FEV1 of 2.1, FEV1/FVC ratio at 86%. IMPRESSION: 1. Decreased flow rates. 2. No obvious obstruction. 3. Possible airways restriction. If clinically warranted, lung volumes may be helpful.
== END 2017-01-29 18:57 | disposition home or self-care (01) ==
LOC: HDOC 05:41 → HDIC 05:41 → HDOC 18:57
PROVIDERS: ATTEND Radiology Vascular & Interventional Radiology
DX: I35.0 Nonrheumatic aortic (valve) stenosis (principal); I25.10 Atherosclerotic heart disease of native coronary artery without angina pectoris; I42.9 Cardiomyopathy, unspecified; I50.9 Heart failure, unspecified; I47.2 Ventricular tachycardia; I10 Essential (primary) hypertension; E78.5 Hyperlipidemia, unspecified; Z86.711 Personal history of pulmonary embolism; Z79.01 Long term (current) use of anticoagulants
CPT/HCPCS: 71020; 80048; 81001; 83036; 85025; 85610; 85730; 86850; 86900; 86901; 87641; 93005; 93306; 93350; 93454; 93880; 94010; C1760; C1769; C1893; G0269; J1250; J1644; J2250; J3010; Q0163; Q9967

== ENCOUNTER 2017-01-30 10:27 | Inpatient (IN) | payer OTHER, MEDICARE ==
[~2017-01-30] VITALS: Ht 177.8 cm; Wt 119.5 kg
[~2017-01-30 10:27] MED LIST changes: -BENA25TA3 PO; +DIPH25CA PO; +ENOX100P SQ; -WARF-21 PO; -WARF-23 PO
[2017-02-12] VITALS (8 sets, daily range): BP systolic 78–144; BP diastolic 50–76; PULSE 73–110; RESP 14–18; TEMP 96.4–98.4; O2SAT 92–99
[2017-02-12] MEDS ORDERED: LIDOCAINE HCL 2% 100 MG/5 ML SYRINGE IV PUSH ONE (05:00)
[2017-02-12] MEDS ORDERED: ARTIFICIAL TEARS OPTH OINT 3.5 APPLIC/3.5 GM TUBO ONE (05:00)
[2017-02-12] MEDS ORDERED: SODIUM BICARBONATE 8.4% INJ 50 MEQ/50 ML SYR IV ONE (05:00)
[2017-02-12] MEDS ORDERED: HEPARIN SODIUM - SQ 10,000 UNITS/ML VIAL SQ ONE (05:00)
[2017-02-12] MEDS ORDERED: VECURONIUM BROMIDE 10 MG VIAL IV ONE ×2 (05:00→07:42)
[2017-02-12] MEDS ORDERED: CALCIUM CHLORIDE 10% SOLN 1 GRAM/10 ML SYR IV ONE (05:00)
[2017-02-12] MEDS ORDERED: PROTAMINE SULFATE 250 MG/25 ML VIAL IV ONE ×2 (05:00→07:42)
[2017-02-12] MEDS ORDERED: EPINEPHrine HCL (1:10,000) 1 MG/10 ML SYRINGE IV ONE (05:00)
[2017-02-12] MEDS ORDERED: PHENYLEPHRINE HCL 10 MG/ML VIAL IV ONE (05:00)
[2017-02-12] MEDS ORDERED: GLYCOPYRROLATE 0.2 MG/ML VIAL IV ONE (05:00)
[2017-02-12] MEDS ORDERED: NITROGLYCERIN-DEXTROSE INJ 250 ML IV ONE (05:00)
[2017-02-12] MEDS ORDERED: AMINOCAPROIC ACID INJ 250 MG/ML 20 ML VIAL IV ONE ×2 (05:00→07:41)
[2017-02-12] MEDS ORDERED: MAGNESIUM SULFATE 1000 MG/2 ML VIAL (PED) IV ONE (05:00)
[2017-02-12] MEDS ORDERED: ceFAZolin 2 GM PREMIX 50 ML IV SCH (05:45)
[2017-02-12] MEDS ORDERED: LACTATED RINGER'S 1000 ML IV PRN (05:45)
[2017-02-12] MEDS ORDERED: CHLORHEXIDINE GLUCONATE 4% SOLN 120 ML BTL TOPICAL SCH (05:45)
[2017-02-12] MEDS ORDERED: CEFAZOLIN 500 MG in NS IRR BTL 500 ML IRRIGATION SCH (05:45)
[2017-02-12] MEDS ORDERED: INSULIN REGULAR 100 UNITS in NS 100 ML IV SCH (05:45)
[2017-02-12] MEDS ORDERED: POVIDONE IODINE 5% (ANTISEPSIS KIT) 4 APPLICATIONS EACH NARE PRN (05:45)
[2017-02-12] MEDS ORDERED: CHLORHEXIDINE GLUCONATE 2 % 1 PACK (2 CLOTHS) TOPICAL PRN (05:45)
[2017-02-12] MEDS ORDERED: INSULIN HUMAN REGULAR 1,000 UNITS/10 ML VIAL SQ PRN (05:45)
[2017-02-12] MEDS ORDERED: METOPROLOL TARTRATE 25 MG TAB PO PRN (05:45)
[2017-02-12] MEDS ORDERED: SODIUM CHLORID 0.9% 500 ML IV PRN (05:45)
[2017-02-12] MEDS ORDERED: METOPROLOL TARTRATE 25 MG TAB PO SCH (05:45)
[2017-02-12] MEDS ORDERED: COUM7.5T PO (05:59)
[2017-02-12] MEDS ORDERED: COUM5TAB PO (05:59)
[2017-02-12] MEDS ORDERED: VANCOMYCIN HCL 1000 MG VIAL ONE (06:24)
[2017-02-12] MEDS ORDERED: HEPARIN SODIUM - SQ 10,000 UNITS/ML VIAL ONE (06:24)
[2017-02-12] MEDS ORDERED: ceFAZolin 2 GM PREMIX 50 ML ONE (06:24)
[2017-02-12] MEDS ORDERED: CUSTODIOL HTK IRR SOLN 1,000 ML ONE (06:50)
[2017-02-12] MEDS ORDERED: POTASSIUM CHLORIDE 20 MEQ/10 ML VIAL ONE ×2 (06:50→11:41)
[2017-02-12] MEDS ORDERED: MANNITOL INJ 50 ML ONE (06:51)
[2017-02-12] MEDS ORDERED: SODIUM BICARBONATE 8.4% INJ 50 ML ONE (06:51)
[2017-02-12] MEDS ORDERED: SODIUM BICARBONATE 8.4% INJ 50 MEQ/50 ML SYR ONE (06:51)
[2017-02-12] MEDS ORDERED: HEPARIN SODIUM - IV 10,000 UNITS/10 ML VIAL ONE (06:52)
[2017-02-12] MEDS ORDERED: ALBUMIN HUMAN 25% 12.5 GM/50 ML BAGP IV ONE (06:52)
[2017-02-12 06:53] LABS: PROTHROMBIN TIME - PATIENT 11.5 SEC (9.8-11.6)
[2017-02-12] MEDS ORDERED: DEXMEDETOMIDINE HCL 200 MCG/2 ML VIAL ONE (07:03)
[2017-02-12] MEDS ORDERED: ACETAMINOPHEN 1000 MG/100 ML VIAL IV ONE (07:03)
[2017-02-12] MEDS ORDERED: NEOSTIGMINE METHYLSULFATE 10 MG/10 ML VIAL IV PUSH ONE (07:42)
[2017-02-12] MEDS ORDERED: LACTATED RINGER'S 1000 ML INJ 1,000 ML IV ONE (07:43)
[2017-02-12] MEDS ORDERED: SODIUM CHLORIDE 0.9% INJ 200 ML IV ONE (07:43)
[2017-02-12] MEDS ORDERED: SODIUM CHLOR 0.9% 250 ML INJ 750 ML IV ONE (07:43)
[2017-02-12] MEDS ORDERED: NORMOSOL R INJ 2,000 ML IV ONE (07:44)
[2017-02-12] MEDS ORDERED: BUPIVACAINE LIPOSO PF 1.3% INJ 20 ML, DEXAMETHASONE INJ 4 MG, MORPHINE INJ 10 MG in SOD... P-ARTICULR SCH (08:15)
[2017-02-12] MEDS ORDERED: POTASSIUM CHLORIDE 40 MEQ/20 ML VIAL ONE (11:40)
[2017-02-12] MEDS ORDERED: ceFAZolin INJ 1,000 MG VIAL ONE (11:52)
[2017-02-12] MEDS ORDERED: POTASSIUM CHLOR 40 MEQ PREMIX 100 ML ONE (12:40)
[2017-02-12] MEDS ORDERED: LACTATED RINGER'S 1000 ML INJ 500 ML IV PRN (13:35)
[2017-02-12] MEDS: DOBUTamine PREMIX DRIP 250 ML IV SCH (13:35)
[2017-02-12] MEDS ORDERED: Post-op Orders (for Pharmacy) MISC OTHER ONE (13:45)
[2017-02-12] MEDS ORDERED: DEXTROSE 50% IN WATER 50 ML VIAL(D50) IV PUSH PRN (13:45)
[2017-02-12] MEDS ORDERED: CALCIUM CHLORIDE 10% 1 GRAM/10 ML VIAL IV PRN (13:45)
[2017-02-12] MEDS ORDERED: POTASSIUM CHLORIDE 20 MEQ CONTROLLED RELEASE TAB PO PRN ×2 (13:45)
[2017-02-12] MEDS ORDERED: POTASSIUM CHLOR 20 MEQ PREMIX 100 ML IV PRN ×3 (13:45)
[2017-02-12] MEDS ORDERED: MEPERIDINE HCL 25 MG/ML VIAL IV PRN (13:45)
[2017-02-12] MEDS ORDERED: MAGNESIUM SULFATE INJ 2 GM in SODIUM CHLORIDE 0.9% INJ 100 ML IV PRN ×4 (13:45)
[2017-02-12] MEDS ORDERED: PHENYLEPHRINE INJ 40 MG in DEXTROSE 5% IN WATE 500 ML INJ 496 ML IV SCH ×2 (13:45)
[2017-02-12] MEDS ORDERED: DOPamine INJ PREMIX 500 ML IV SCH (13:45)
[2017-02-12] MEDS ORDERED: METOPROLOL TARTRATE 5 MG/5 ML VIAL IV PUSH PRN (13:45)
[2017-02-12] MEDS ORDERED: RESP: ALBUTEROL 2.5 MG/IPRATROPIUM 0.5 MG NEB (PRN) NEB ×2 (13:45→17:00)
[2017-02-12] MEDS ORDERED: DEXMEDETOMIDINE INJ 200 MCG in SODIUM CHLORIDE 0.9% INJ 50 ML IV SCH (13:45)
[2017-02-12] MEDS ORDERED: MORPHINE SULFATE 4 MG/ML INJ IV PRN (13:45)
[2017-02-12] MEDS ORDERED: ACETAMINOPHEN 650 MG SUPP RECTAL PRN (13:45)
[2017-02-12] MEDS ORDERED: RESP: RACEPINEPHRINE 2.25% 0.5 ML NEB NEB PRN ×2 (13:45→17:00)
[2017-02-12] MEDS ORDERED: ONDANSETRON HCL 4 MG/2 ML VIAL IV PUSH PRN (13:45)
[2017-02-12] MEDS ORDERED: ALBUMIN HUMAN 5% 12.5 GM/250 ML BOTTLE IV PRN (13:45)
[2017-02-12] MEDS ORDERED: CLEVIDIPINE INJ 50 ML IV SCH (13:45)
[2017-02-12] MEDS ORDERED: SODIUM CHLORIDE 0.9% FLUSH 10 ML FLUSH IV FLUSH PRN (13:45)
[2017-02-12] MEDS ORDERED: AMIODARONE 200 MG TAB PO SCH (14:00)
[2017-02-12] MEDS ORDERED: PHENYLEPHRINE HCL 10 MG/ML VIAL ONE (14:23)
[2017-02-12] MEDS ORDERED: TERBUTALINE INJ 1 MG/ML AMP SQ PRN (14:30)
[2017-02-12] MEDS ORDERED: fentaNYL CITRATE 1000 MCG/20 ML VIAL ONE (14:44)
[2017-02-12] MEDS ORDERED: MIDAZOLAM HCL 5 MG/5 ML VIAL ONE (14:44)
--- NOTE | 2017-02-12 15:00 | RADRPT ---
EXAM DATE/TIME: 02/12/2017 14:30 [facility] COMPARISON: No previous studies available for comparison. INDICATIONS : Post CABG. MEDICAL HISTORY : Congestive heart failure. Irregular heartbeat. Aortic stenosis. Heart murmur. SURGICAL HISTORY : None. ENCOUNTER: Initial ACUITY: 1 day PAIN SCORE: Non-responsive. LOCATION: Bilateral chest FINDINGS: ET tube, nasogastric tube and central venous catheter are in good position. Heart is enlarged. Medi astinum is prominent. Mild interstitial edema is evident. CONCLUSION: 1. Support apparatus in good position. 2. Prominent mediastinal contours. 3. Mild interstitial edema. Ralph Reeves MD FACR on February 12, 2017 at 14:57 Board Certified Radiologist. This report was verified electronically.
[2017-02-12] MEDS ORDERED: hydrALAZINE HCL 20 MG/ML VIAL IV PRN (15:30)
[2017-02-12] MEDS ORDERED: INSULIN REGULAR (IV INFUSION) 100 UNITS in SODIUM CHLORIDE 0.9% INJ 99 ML IV SCH (15:30)
[2017-02-12] MEDS ORDERED: NITROGLYCERIN-DEXTROSE INJ 250 ML IV SCH (15:30)
[2017-02-12] MEDS ORDERED: EPINEPHrine (1:1000) INJ 4 MG in DEXTROSE 5% IN WATER INJ 246 ML IV SCH ×2 (15:45)
--- NOTE | 2017-02-12 15:53 | PD.OP ---
cc: Felipe Marshall MD; Case Gandhi MD Operative Report Date of Surgery: Feb 12, 2017 Preoperative Diagnosis: Postoperative Diagnosis: Procedure: 1. Mini-Sternotomy 2. Aborted Mini-Thoracotomy 3. Aortic Valve Replacement with a 27 mm Mosaic Cinch II Tissue valve 4. Biomet Sternal Fixation. . Surgeon: Case Gandhi Stone Polisher Machine(s): More Acevedo Operation and Findings: PREOPERATIVE DIAGNOSES 1. Severe Aortic Stenosis. 2. Severe Left Ventricular Dysfunction (EF 30%) POSTOPERATIVE DIAGNOSES 1. Severe Aortic Stenosis. 2. Severe Left Ventricular Dysfunction (EF 30%) 3. Dense Adhesions between Right Lung and Chest wall SURGICAL PROCEDURE 1. Mini-Sternotomy 2. Aborted Mini-Thoracotomy 3. Aortic Valve Replacement with a 27 mm Mosaic Cinch II Tissue valve 4. Biomet Sternal Fixation. VACUUM CLEANER ASSEMBLER JEFFERSON Palafox ANESTHESIA General endotracheal. CARE SERVICES MANAGER Connor Zaragoza CRNA, Jocelin Jimenes MD PREPARATION ChloraPrep. NEEDLE, SPONGE AND INSTRUMENT COUNT Correct. DRAINS One 28-Gu[place] mediastinal tubes. COMPLICATIONS None. INDICATIONS The patient is an 71-year-old gentleman with severe aortic stenosis and severe left ventricular dysfunction, presenting for surgical correction of the above pathology. DESCRIPTION OF PROCEDURE The patient was brought to the operating room and placed supine on the OR table. Following the induction of adequate general endotracheal anesthesia and placement of appropriate monitoring devices, the patient was then prepped and draped in the standard sterile fashion. A 6 cm right anterior thoracotomy was performed and the 3rd rib was shingled. The right internal mammary artery and vein were ligated and divided. It was noted that the right lung was densely adherent to the chest wall as well as to the pericardium and mediastinal structures. An Sathya retractor was attempted to be placed, however, due to the lung adhesions this was not possible. Attempts at lysing the adhesions and freeing up the lung were also unsuccessful with concerns for tearing the lung. Therefore, at this time the decision was made to abandon the right thoracotomy and opt for a mini-sternotomy approach. A 7 cm incision was made overlying the manubrium and the superior aspect of the sternum. Irwin-sternotomy was performed upto the 3rd ICS and the sternotomy T-ed at that point. The pericardium was divided in the midline and the cradle created. The patient was systemically heparinized and anticoagulation monitored by serial ACT measurements. Then 2 pursestring sutures of 2-0 Ethibond were placed on the aorta proximal to the takeoff of the innominate artery, another was placed in the right atrial appendage. At this point, aortic and 2-stage venous cannulas were introduced and attached to the arterial and venous components of the bypass circuit respectively. Antegrade cardioplegia cannula and a left ventricular vent, through the right superior pulmonary vein, were also placed. The patient was placed on cardiopulmonary bypass and core cooling initiated to a temperature of 32 degrees centigrade. The crossclamp was applied and 1.5L of antegrade cardioplegia solution (Shelter HTK) given in an antegrade fashion in addition to topical cooling with slushed saline. Upon achieving adequate diastolic arrest of the heart a transverse aortotomy was performed. Additional ostial cardioplegia was given at this time directly into the left main (500 mls) and RCA (300 mls). The aortic valve was then excised and sent for microbiologic analysis. The valve and annulus were noted to be very heavily calcified. Circumferential decalcification was performed. Horizontal mattress sutures of interrupted 2-0 Ethibond were placed on the aortic annulus with pledgets on the ventricular side. After adequate sizing, a 27 mm Mosaic Cinch II tissue valve was brought in the surgical field and the sutures passed through the skirt and the valve was situated using the Cor-Knot device. This appeared to be a good fit. Gradual rewarming was initiated and the aortotomy closed in 2 layers. This was with 4-0 Prolene; the 1st layer being horizontal mattress, the 2nd layer being running baseball stitch. The cross clamp was removed and upon achieving normothermic cardiac activity, transesophageal echocardiography revealed a well- situated aortic prosthesis with no evidence of perivalvular leak and no aortic stenosis or aortic regurgitation. Protamine was administered. Decannulation was performed and all sites were inspected for hemostasis. At this point the closure was undertaken. A 28 Fr chest tube placed, and the sternum was reapproximated using stainless steel sternal wires and the [employer] Sternal Plating system. Two plates were used. The thoracotomy incision was closed in 3 layers as was the irwin-sternotomy incision. Sterile dressing was applied. The patient tolerated the procedure well and was transferred to open heart recovery in stable condition. Case Gandhi MD Feb 12, 2017 15:53
[2017-02-12] MEDS ORDERED: RESP: ALBUTEROL 2.5 MG/IPRATROPIUM 0.5 MG NEB (SCH) NEB (16:00)
[2017-02-12] MEDS: KETOROLAC TROMETHAMINE 30 MG/ML (IVP) VIAL IV PUSH PRN ×2 (17:09→23:13)
[2017-02-12] MEDS: CALCIUM CHLORIDE INJ 1 GM in SODIUM CHLORIDE 0.9% INJ 100 ML IV PRN ×2 (17:10→18:51)
[2017-02-12] MEDS: RESP: ALBUTEROL 2.5 MG/IPRATROPIUM 0.5 MG NEB (SCH) NEB (20:24)
[2017-02-12] MEDS: SODIUM CHLORIDE 0.9% FLUSH 10 ML FLUSH IV FLUSH SCH (20:55)
[2017-02-12] MEDS: ceFAZolin 2 GM PREMIX 50 ML IV SCH (20:55)
[2017-02-12] MEDS: ACETAMINOPHEN 1000 MG/100 ML VIAL IV SCH (20:55)
[2017-02-12] MEDS: AMIODARONE 200 MG TAB PO SCH (20:56)
[2017-02-13] VITALS (17 sets, daily range): BP systolic 104–127; BP diastolic 49–72; PULSE 88–120; RESP 16–20; TEMP 97.6–99.3; O2SAT 93–99
[2017-02-13] MEDS: ACETAMINOPHEN 1000 MG/100 ML VIAL IV SCH (01:46)
[2017-02-13] MEDS: DOBUTamine PREMIX DRIP 250 ML IV SCH ×2 (03:44→17:53)
--- NOTE | 2017-02-13 03:45 | RADRPT ---
EXAM DATE/TIME: 02/13/2017 03:19 [facility] COMPARISON: CHEST SINGLE AP, February 12, 2017, 14:30. INDICATIONS : Shortness of breath, possible pulmonary disease. MEDICAL HISTORY : Hypertension. Congestive heart failure. Aortic stenosis Nonischemic cardiomyopathy SURGICAL HISTORY : CABG. ENCOUNTER: Subsequent ACUITY: 2 days PAIN SCORE: Non-responsive. LOCATION: Bilateral chest FINDINGS: Interval extubation removal of NG tube. Right internal jugular catheter tip projects over the mid souza perior vena cava. Tortuous aorta. No focal infiltrates seen. Both hemidiaphragms will delineated. Stable heart size. CONCLUSION: Resolved lower lung infiltrates. Michael Mayorga MD on February 13, 2017 at 3:43 Board Certified Radiologist. This report was verified electronically.
[2017-02-13 04:05] LABS: HEMATOCRIT 28.7 % (39.0-51.0); MEAN CELL VOLUME 82.3 FL (80.0-100.0); MEAN CORPUSCULAR HEMOGLOBIN 28.1 PG (27.0-34.0); MEAN CORPUSCULAR HGB CONC 34.1 % (32.0-36.0); PLATELET COUNT 88 TH/MM3 (150-450); RED BLOOD COUNT 3.49 MIL/MM3 (4.50-5.90); RED CELL DISTRIBUTION WIDTH 15.5 % (11.6-17.2); WHITE BLOOD COUNT 9.7 TH/MM3 (4.0-11.0)
[2017-02-13] MEDS: ceFAZolin 2 GM PREMIX 50 ML IV SCH ×3 (04:15→20:17)
[2017-02-13 04:24] LABS: BICARBONATE 27.9 MEQ/L (21.0-32.0); MAGNESIUM 2.2 MG/DL (1.5-2.5)
[2017-02-13 04:45] LABS: REVIEW FLAG FINAL
[2017-02-13] MEDS: PANTOPRAZOLE SOD 40 MG DELAYED RELEASE TAB PO SCH (04:53)
[2017-02-13] MEDS: RESP: ALBUTEROL 2.5 MG/IPRATROPIUM 0.5 MG NEB (SCH) NEB ×4 (06:36→22:44)
--- NOTE | 2017-02-13 07:56 | PD.CAR.PN ---
CVT Progress Note Subjective/Hospital Course: 71 yo with progressive SOB and severe aortic stenosis and left ventricular dysfunction 02/12 SURGICAL PROCEDURE 1. Mini-Sternotomy 2. Aortic Valve Replacement with a 27 mm Mosaic Cinch II Tissue valve 3. Biomet Sternal Fixation. 02/13 Doing well Wean off Dobutamine Transfer CIC Maintain CT Beta paulino Objective: Vital Signs Date Time Temp Pulse Resp B/P Pulse Ox O2 Delivery O2 Flow Rate FiO2 02/13/17 04:00 88 02/13/17 04:00 98.9 89 18 108/62 94 105/52 02/13/17 04:00 94 Nasal Cannula 3.00 02/13/17 00:00 93 Nasal Cannula 3.00 02/13/17 00:00 98 02/13/17 00:00 99.3 97 18 104/60 93 104/49 02/12/17 23:00 94 Nasal Cannula 3.00 02/12/17 20:00 98.4 110 18 144/71 97 126/58 02/12/17 20:00 97 Nasal Cannula 2.00 02/12/17 20:00 110 02/12/17 18:09 16 02/12/17 17:39 99 21 02/12/17 16:00 97.6 83 14 119/74 99 112/62 02/12/17 16:00 80 02/12/17 15:35 99 Nasal Cannula 2.00 02/12/17 15:35 99 Nasal Cannula 2 02/12/17 15:35 98 Nasal Cannula 2.00 02/12/17 15:00 40 02/12/17 15:00 99 Mechanical Ventilator 40 02/12/17 14:55 99 40 02/12/17 14:10 92 Mechanical Ventilator 60 02/12/17 14:10 60 02/12/17 14:10 96.4 92 14 119/71 92 78/50 02/12/17 14:10 77 02/12/17 14:05 99 60 Labs: Laboratory Tests Test 02/13/17 03:30 White Blood Count 9.7 TH/MM3 (4.0-11.0) Red Blood Count 3.49 MIL/MM3 (4.50-5.90) Hemoglobin 9.8 GM/DL (13.0-17.0) Hematocrit 28.7 % (39.0-51.0) Mean Corpuscular Volume 82.3 FL (80.0-100.0) Mean Corpuscular Hemoglobin 28.1 PG (27.0-34.0) Mean Corpuscular Hemoglobin 34.1 % Concent (32.0-36.0) Red Cell Distribution Width 15.5 % (11.6-17.2) Platelet Count 88 TH/MM3 (150-450) Mean Platelet Volume 8.3 FL (7.0-11.0) Sodium Level 144 MEQ/L (136-145) Potassium Level 4.0 MEQ/L (3.5-5.1) Chloride Level 111 MEQ/L (98-107) Carbon Dioxide Level 27.9 MEQ/L (21.0-32.0) Anion Gap 5 MEQ/L (5-15) Blood Urea Nitrogen 17 MG/DL (7-18) Creatinine 0.79 MG/DL (0.60-1.30) Estimat Glomerular Filtration 97 ML/MIN (>89) Rate Random Glucose 109 MG/DL (74-106) Calcium Level 8.1 MG/DL (8.5-10.1) Magnesium Level 2.2 MG/DL (1.5-2.5) Result Diagram: 02/13/1732902/13/17329 (1) Left ventricular dysfunction (2) Severe aortic stenosis (3) S/P AVR (aortic valve replacement) Case Gandhi MD Feb 13, 2017 07:56
[2017-02-13] MEDS ORDERED: DEXTROSE 50% IN WATER 50 ML VIAL(D50) IV PRN (08:00)
[2017-02-13] MEDS ORDERED: SOD PHOSPHATE/SOD BIPHOSPHATE (ADULT) ENEMA 133ML RECTAL PRN (08:00)
[2017-02-13] MEDS ORDERED: GLUCAGON 1 MG/ML VIAL OTHER PRN (08:00)
[2017-02-13] MEDS ORDERED: BISACODYL 10 MG SUPP RECTAL PRN (08:00)
--- NOTE | 2017-02-13 08:17 | EKG ---
Date Performed: 02/13/2017 Time Performed: 03:37:16 PTAGE: 71 years EKG: Sinus tachycardia Extensive T wave changes may be due to myocardial ischemia Abnormal ECG PREVIOUS TRACING : 01/29/2017 07.52 DOCTOR: Felipe Marshall Interpretating Date/Time 02/13/2017 08:14:31
[2017-02-13] MEDS: ACETAMINOPHEN/HYDROcodone 325 MG/5 MG TAB PO PRN ×5 (08:20→21:29)
[2017-02-13] MEDS: SODIUM CHLORIDE 0.9% FLUSH 10 ML FLUSH IV FLUSH SCH ×2 (09:00→21:28)
[2017-02-13] MEDS: FLUOCINOLONE ACETONIDE 0.01% CR 15 GM TUBE TOPICAL SCH ×2 (09:00→21:00)
[2017-02-13] MEDS: ASPIRIN 81 MG CHEW TAB PO SCH (09:12)
[2017-02-13] MEDS: MAGNESIUM HYDROXIDE SUSP 30 ML CUP PO SCH (09:12)
[2017-02-13] MEDS: PRAVASTATIN SOD 40 MG TAB PO SCH (09:13)
[2017-02-13] MEDS: CARVEDILOL 3.125 MG TAB PO SCH ×2 (09:13→21:29)
[2017-02-13] MEDS: AMIODARONE 200 MG TAB PO SCH ×2 (09:13→21:29)
[2017-02-13] MEDS: INSULIN ASPART SUPPLEMENTAL SCALE SQ SCH ×4 (10:00→22:00)
[2017-02-13] MEDS: SENNOSIDES 8.6 MG TAB PO SCH (21:29)
[2017-02-13] MEDS: DOCUSATE SODIUM 100 MG CAP PO SCH (21:29)
[2017-02-14] VITALS (28 sets, daily range): BP systolic 103–114; BP diastolic 64–73; PULSE 81–115; RESP 18–19; TEMP 98.7–100.6; O2SAT 93–99
[2017-02-14] MEDS: INSULIN ASPART SUPPLEMENTAL SCALE SQ SCH ×4 (02:20→19:43)
[2017-02-14] MEDS: ACETAMINOPHEN/HYDROcodone 325 MG/5 MG TAB PO PRN ×3 (02:20→21:23)
[2017-02-14] MEDS: ceFAZolin 2 GM PREMIX 50 ML IV SCH (04:06)
[2017-02-14 04:11] LABS: AUTOMATED NEUTROPHIL # 6.6 TH/MM3 (1.8-7.7); BASOPHIL % 0.3 % (0.0-2.0); EOSINOPHIL # 0.1 TH/MM3 (0-0.4); EOSINOPHIL % 1.1 % (0.0-4.0); HEMATOCRIT 26.4 % (39.0-51.0); LYMPH % 15.3 % (9.0-44.0); LYMPHOCYTE # 1.4 TH/MM3 (1.0-4.8); MEAN CORPUSCULAR HEMOGLOBIN 27.5 PG (27.0-34.0); MEAN CORPUSCULAR HGB CONC 32.8 % (32.0-36.0); MONO % 8.5 % (0.0-8.0); NEUT % 74.8 % (16.0-70.0); PLATELET COUNT 79 TH/MM3 (150-450); RED BLOOD COUNT 3.15 MIL/MM3 (4.50-5.90); RED CELL DISTRIBUTION WIDTH 15.6 % (11.6-17.2); WHITE BLOOD COUNT 8.9 TH/MM3 (4.0-11.0)
[2017-02-14 04:30] LABS: HEMO FLAGS AUTO DIFF
[2017-02-14] MEDS: RESP: ALBUTEROL 2.5 MG/IPRATROPIUM 0.5 MG NEB (SCH) NEB ×4 (04:33→21:14)
[2017-02-14 04:48] LABS: BICARBONATE 31.2 MEQ/L (21.0-32.0); MAGNESIUM 2.2 MG/DL (1.5-2.5); POTASSIUM 4.2 MEQ/L (3.5-5.1)
[2017-02-14] MEDS: PANTOPRAZOLE SOD 40 MG DELAYED RELEASE TAB PO SCH (06:10)
[2017-02-14 07:30] LABS: OVALOCYTES 1+ (NORMAL); PLATELET ESTIMATE SMEAR LOW (NORMAL); PLATELET MORPHOLOGY NORMAL (NORMAL); SCAN/DIFF AUTO DIFF CONFIRMED
[2017-02-14] MEDS: DOBUTamine PREMIX DRIP 250 ML IV SCH ×2 (08:02→22:11)
[2017-02-14] MEDS: PRAVASTATIN SOD 40 MG TAB PO SCH (08:58)
[2017-02-14] MEDS: DOCUSATE SODIUM 100 MG CAP PO SCH ×2 (08:58→19:43)
[2017-02-14] MEDS: AMIODARONE 200 MG TAB PO SCH ×2 (08:59→19:42)
[2017-02-14] MEDS: POLYETHYLENE GLYCOL 17 GM PKG PO SCH (08:59)
[2017-02-14] MEDS: MAGNESIUM HYDROXIDE SUSP 30 ML CUP PO SCH (08:59)
[2017-02-14] MEDS: CARVEDILOL 3.125 MG TAB PO SCH ×2 (08:59→19:43)
[2017-02-14] MEDS: ASPIRIN 81 MG CHEW TAB PO SCH ×2 (08:59→09:00)
[2017-02-14] MEDS: SODIUM CHLORIDE 0.9% FLUSH 10 ML FLUSH IV FLUSH SCH ×2 (09:00→19:46)
--- NOTE | 2017-02-14 12:18 | PD.CAR.PN ---
CVT Progress Note CVT: POD #: 2 Subjective/Hospital Course: 71 yo with progressive SOB and severe aortic stenosis and left ventricular dysfunction 02/12 SURGICAL PROCEDURE 1. Mini-Sternotomy 2. Aortic Valve Replacement with a 27 mm Mosaic Cinch II Tissue valve 3. Biomet Sternal Fixation. 02/13 Doing well Wean off Dobutamine Transfer CIC Maintain CT Beta paulino 02/14/17 No complaints Objective: Vital Signs Date Time Temp Pulse Resp B/P Pulse Ox O2 Delivery O2 Flow Rate FiO2 02/14/17 11:30 96 Nasal Cannula 02/14/17 11:30 99.1 96 18 111/71 96 02/14/17 08:45 98.9 94 18 114/64 99 02/14/17 08:45 99 Nasal Cannula 02/14/17 07:01 102 02/14/17 06:00 103 02/14/17 05:00 104 02/14/17 04:00 109 02/14/17 04:00 97 Nasal Cannula 2.00 02/14/17 03:00 98.7 108 19 106/64 97 02/14/17 03:00 105 02/14/17 02:00 109 02/14/17 01:00 110 02/14/17 00:03 96 Nasal Cannula 2.00 02/14/17 00:00 101 02/13/17 23:00 98.0 107 18 104/69 96 02/13/17 23:00 106 02/13/17 22:45 98 Nasal Cannula 2.00 02/13/17 22:00 102 02/13/17 21:00 106 02/13/17 20:01 98 Nasal Cannula 2.00 02/13/17 20:01 98.7 108 18 113/68 98 02/13/17 20:00 112 02/13/17 19:00 109 02/13/17 16:55 20 02/13/17 16:00 97 Nasal Cannula 2.00 02/13/17 16:00 98.6 111 20 110/72 97 02/13/17 15:00 97 Nasal Cannula 2.00 02/13/17 15:00 106 Labs: Laboratory Tests Test 02/14/17 03:30 White Blood Count 8.9 TH/MM3 (4.0-11.0) Red Blood Count 3.15 MIL/MM3 (4.50-5.90) Hemoglobin 8.7 GM/DL (13.0-17.0) Hematocrit 26.4 % (39.0-51.0) Mean Corpuscular Volume 84.0 FL (80.0-100.0) Mean Corpuscular Hemoglobin 27.5 PG (27.0-34.0) Mean Corpuscular Hemoglobin 32.8 % Concent (32.0-36.0) Red Cell Distribution Width 15.6 % (11.6-17.2) Platelet Count 79 TH/MM3 (150-450) Mean Platelet Volume 9.5 FL (7.0-11.0) Neutrophils (%) (Auto) 74.8 % (16.0-70.0) Lymphocytes (%) (Auto) 15.3 % (9.0-44.0) Monocytes (%) (Auto) 8.5 % (0.0-8.0) Eosinophils (%) (Auto) 1.1 % (0.0-4.0) Basophils (%) (Auto) 0.3 % (0.0-2.0) Neutrophils # (Auto) 6.6 TH/MM3 (1.8-7.7) Lymphocytes # (Auto) 1.4 TH/MM3 (1.0-4.8) Monocytes # (Auto) 0.8 TH/MM3 (0-0.9) Eosinophils # (Auto) 0.1 TH/MM3 (0-0.4) Basophils # (Auto) 0.0 TH/MM3 (0-0.2) CBC Comment AUTO DIFF Differential Comment AUTO DIFF CONFIRMED Platelet Estimate LOW (NORMAL) Platelet Morphology Comment NORMAL (NORMAL) Ovalocytes 1+ (NORMAL) Sodium Level 139 MEQ/L (136-145) Potassium Level 4.2 MEQ/L (3.5-5.1) Chloride Level 103 MEQ/L (98-107) Carbon Dioxide Level 31.2 MEQ/L (21.0-32.0) Anion Gap 5 MEQ/L (5-15) Blood Urea Nitrogen 16 MG/DL (7-18) Creatinine 0.84 MG/DL (0.60-1.30) Estimat Glomerular Filtration 90 ML/MIN (>89) Rate Random Glucose 113 MG/DL (74-106) Calcium Level 8.0 MG/DL (8.5-10.1) Magnesium Level 2.2 MG/DL (1.5-2.5) Result Diagram: 02/14/17 03302/14/17329 Cardiovascular: RRR Telemetry: NSR Pulmonary: CTA GI/: NABS, NT Incision: dry and intact CT: minimal output Plan: D/C chest tubes Diurese Encourage ambulation, up to chair Stim BM (1) Left ventricular dysfunction (2) Severe aortic stenosis (3) S/P AVR (aortic valve replacement) Delmi Unger MD Feb 14, 2017 12:18
[2017-02-14] MEDS: FLUOCINOLONE ACETONIDE 0.01% CR 15 GM TUBE TOPICAL SCH (19:17)
[2017-02-14] MEDS: SENNOSIDES 8.6 MG TAB PO SCH (19:42)
[2017-02-14] MEDS: ACETAMINOPHEN 325 MG TAB PO PRN (19:46)
[2017-02-15] VITALS (28 sets, daily range): BP systolic 91–117; BP diastolic 60–70; PULSE 77–104; RESP 16–18; TEMP 97.2–98.8; O2SAT 94–98
[2017-02-15] MEDS: ACETAMINOPHEN/HYDROcodone 325 MG/5 MG TAB PO PRN ×5 (00:29→22:26)
[2017-02-15] MEDS: RESP: ALBUTEROL 2.5 MG/IPRATROPIUM 0.5 MG NEB (SCH) NEB ×2 (03:51→10:22)
[2017-02-15] MEDS: INSULIN ASPART SUPPLEMENTAL SCALE SQ SCH ×4 (06:24→21:00)
[2017-02-15] MEDS: PANTOPRAZOLE SOD 40 MG DELAYED RELEASE TAB PO SCH (06:25)
[2017-02-15] MEDS: POLYETHYLENE GLYCOL 17 GM PKG PO SCH (08:45)
[2017-02-15] MEDS: DOCUSATE SODIUM 100 MG CAP PO SCH ×2 (08:45→22:22)
[2017-02-15] MEDS: MAGNESIUM HYDROXIDE SUSP 30 ML CUP PO SCH (08:45)
[2017-02-15] MEDS: CARVEDILOL 3.125 MG TAB PO SCH (08:46)
[2017-02-15] MEDS: PRAVASTATIN SOD 40 MG TAB PO SCH (08:46)
[2017-02-15] MEDS: AMIODARONE 200 MG TAB PO SCH ×2 (08:46→22:22)
[2017-02-15] MEDS: ASPIRIN 81 MG CHEW TAB PO SCH (08:46)
[2017-02-15] MEDS: FLUOCINOLONE ACETONIDE 0.01% CR 15 GM TUBE TOPICAL SCH ×2 (08:47→21:00)
[2017-02-15] MEDS: SODIUM CHLORIDE 0.9% FLUSH 10 ML FLUSH IV FLUSH SCH ×2 (08:47→22:23)
[2017-02-15] MEDS ORDERED: INFO FOR PHARMACY/READ COMMENT ONE (11:30)
--- NOTE | 2017-02-15 11:38 | PD.CAR.PN ---
CVT Progress Note CVT: POD #: 3 Subjective/Hospital Course: 71 yo with progressive SOB and severe aortic stenosis and left ventricular dysfunction 02/12 SURGICAL PROCEDURE 1. Mini-Sternotomy 2. Aortic Valve Replacement with a 27 mm Mosaic Cinch II Tissue valve 3. Biomet Sternal Fixation. 02/13 Doing well Wean off Dobutamine Transfer CIC Maintain CT Beta paulino 02/14/17 No complaints 02/15/17 c/o dyspnea after neb treatments No BM yet Objective: Vital Signs Date Time Temp Pulse Resp B/P Pulse Ox O2 Delivery O2 Flow Rate FiO2 02/15/17 11:00 97.2 96 16 109/63 94 02/15/17 11:00 94 Room Air 02/15/17 10:24 95 21 02/15/17 10:00 104 02/15/17 09:00 100 02/15/17 08:15 95 02/15/17 08:15 95 Room Air 02/15/17 08:15 97.8 95 16 117/62 95 02/15/17 07:00 92 02/15/17 06:00 95 02/15/17 05:28 95 Room Air 02/15/17 05:02 97 02/15/17 04:00 99 02/15/17 03:53 98 Nasal Cannula 1.00 02/15/17 03:00 93 02/15/17 03:00 98.3 101 18 91/60 98 02/15/17 03:00 98 Nasal Cannula 1.00 02/15/17 02:00 93 02/15/17 01:00 98 02/15/17 00:00 98 Nasal Cannula 2.00 02/15/17 00:00 98.8 96 18 97/67 97 02/15/17 00:00 81 02/14/17 23:00 81 02/14/17 22:00 104 02/14/17 21:17 93 Nasal Cannula 1.00 02/14/17 21:00 109 02/14/17 20:00 100.6 115 18 114/73 95 02/14/17 20:00 114 02/14/17 20:00 98 Nasal Cannula 2.00 02/14/17 18:00 110 02/14/17 17:00 108 02/14/17 16:01 104 02/14/17 15:01 98.9 113 18 103/65 93 02/14/17 15:01 93 Nasal Cannula 02/14/17 15:00 112 02/14/17 14:00 106 02/14/17 13:00 94 02/14/17 12:01 90 Result Diagram: 02/14/17 03302/14/17 033 Cardiovascular: RRR Telemetry: NSR Pulmonary: CTA GI/: NABS, NT Incision: dry and intact Plan: Restart lasix D/C nebs Stim BM Encourage amulation Restart coumadin Daily INR (1) Left ventricular dysfunction (2) Severe aortic stenosis (3) S/P AVR (aortic valve replacement) Delmi Unger MD Feb 15, 2017 11:38
[2017-02-15] MEDS: DOBUTamine PREMIX DRIP 250 ML IV SCH (12:20)
[2017-02-15 12:52] LABS: INTERNATIONAL NORMALIZED RATIO 1.1 RATIO; PROTHROMBIN TIME - PATIENT 11.9 SEC (9.8-11.6)
[2017-02-15] MEDS: FUROSEMIDE 40 MG TAB PO SCH (16:42)
[2017-02-15] MEDS: WARFARIN SOD 7.5 MG TAB PO SCH (16:43)
[2017-02-15] MEDS: CARVEDILOL 6.25 MG TAB PO SCH (22:22)
[2017-02-15] MEDS: SENNOSIDES 8.6 MG TAB PO SCH (22:23)
[2017-02-16] VITALS (26 sets, daily range): BP systolic 94–116; BP diastolic 55–78; PULSE 71–92; RESP 16–18; TEMP 97.6–98.5; O2SAT 95–100
[2017-02-16] MEDS: DOBUTamine PREMIX DRIP 250 ML IV SCH ×2 (02:29→15:46)
[2017-02-16] MEDS: ACETAMINOPHEN/HYDROcodone 325 MG/5 MG TAB PO PRN ×3 (02:46→20:06)
[2017-02-16] MEDS: PANTOPRAZOLE SOD 40 MG DELAYED RELEASE TAB PO SCH (05:32)
[2017-02-16] MEDS: INSULIN ASPART SUPPLEMENTAL SCALE SQ SCH ×4 (05:34→20:07)
[2017-02-16 05:54] LABS: PROTHROMBIN TIME - PATIENT 11.5 SEC (9.8-11.6)
[2017-02-16] MEDS: PRAVASTATIN SOD 40 MG TAB PO SCH (09:00)
[2017-02-16] MEDS: FUROSEMIDE 40 MG TAB PO SCH ×2 (09:00→17:03)
[2017-02-16] MEDS: AMIODARONE 200 MG TAB PO SCH ×2 (09:00→20:06)
[2017-02-16] MEDS: MAGNESIUM HYDROXIDE SUSP 30 ML CUP PO SCH (09:00)
[2017-02-16] MEDS: DOCUSATE SODIUM 100 MG CAP PO SCH ×2 (09:00→20:06)
[2017-02-16] MEDS: FLUOCINOLONE ACETONIDE 0.01% CR 15 GM TUBE TOPICAL SCH ×2 (09:00→20:07)
[2017-02-16] MEDS: CARVEDILOL 6.25 MG TAB PO SCH ×2 (09:01→20:06)
[2017-02-16] MEDS: SODIUM CHLORIDE 0.9% FLUSH 10 ML FLUSH IV FLUSH SCH ×2 (09:01→20:07)
[2017-02-16] MEDS: POLYETHYLENE GLYCOL 17 GM PKG PO SCH (09:01)
[2017-02-16] MEDS: ASPIRIN 81 MG CHEW TAB PO SCH (09:01)
--- NOTE | 2017-02-16 11:49 | PD.CAR.PN ---
CVT Progress Note CVT: POD #: 4 Subjective/Hospital Course: 71 yo with progressive SOB and severe aortic stenosis and left ventricular dysfunction 02/12 SURGICAL PROCEDURE 1. Mini-Sternotomy 2. Aortic Valve Replacement with a 27 mm Mosaic Cinch II Tissue valve 3. Biomet Sternal Fixation. 02/13 Doing well Wean off Dobutamine Transfer CIC Maintain CT Beta paulino 02/14/17 No complaints 02/15/17 c/o dyspnea after neb treatments No BM yet 02/16/17 No complaints. His is anxious about him being discharged and desires SNF placement. +BM Objective: Vital Signs Date Time Temp Pulse Resp B/P Pulse Ox O2 Delivery O2 Flow Rate FiO2 02/16/17 10:14 79 02/16/17 09:00 92 02/16/17 08:45 97.6 82 18 101/60 98 02/16/17 08:45 98 Room Air 02/16/17 08:45 81 02/16/17 07:54 95 02/16/17 06:36 77 02/16/17 05:00 75 02/16/17 04:00 79 02/16/17 03:00 75 02/16/17 03:00 97.8 78 16 110/78 95 02/16/17 03:00 95 Room Air 02/16/17 02:00 76 02/16/17 01:00 80 02/16/17 00:00 80 02/15/17 23:30 98.2 82 16 106/64 98 02/15/17 23:30 97 Room Air 02/15/17 23:00 81 02/15/17 22:00 86 02/15/17 21:00 84 02/15/17 20:20 95 Room Air 02/15/17 20:20 97.7 87 16 103/60 95 02/15/17 20:00 90 02/15/17 19:00 100 02/15/17 18:00 101 02/15/17 17:00 77 02/15/17 16:00 104 02/15/17 15:00 98.6 80 16 109/70 96 02/15/17 15:00 96 Room Air 02/15/17 14:00 101 02/15/17 13:00 99 02/15/17 12:00 100 Labs: Laboratory Tests Test 02/16/17 04:20 Prothrombin Time 11.5 SEC (9.8-11.6) Prothromb Time International 1.0 RATIO Ratio Result Diagram: 02/14/1732902/14/17329 Cardiovascular: RRR Telemetry: NSR Pulmonary: CTA Incision: dry and intact Plan: D/C to SNF when a bed is available - hopefully in AM (1) Left ventricular dysfunction (2) Severe aortic stenosis (3) S/P AVR (aortic valve replacement) Delmi Unger MD Feb 16, 2017 11:49
[2017-02-16] MEDS ORDERED: ALUMINUM/MAGNESIUM/SIMETH 30 ML CUP PO PRN (12:00)
[2017-02-16] MEDS: WARFARIN SOD 7.5 MG TAB PO SCH (17:03)
[2017-02-16] MEDS: SENNOSIDES 8.6 MG TAB PO SCH (20:06)
[2017-02-16] MEDS: diphenhydrAMINE HCL 25 MG CAP PO PRN (20:06)
[2017-02-17] VITALS (31 sets, daily range): BP systolic 96–120; BP diastolic 60–79; PULSE 68–92; RESP 16–20; TEMP 91.1–98.8; O2SAT 94–100
[2017-02-17] MEDS: ACETAMINOPHEN/HYDROcodone 325 MG/5 MG TAB PO PRN (02:15)
[2017-02-17] MEDS: PANTOPRAZOLE SOD 40 MG DELAYED RELEASE TAB PO SCH (05:48)
[2017-02-17] MEDS: INSULIN ASPART SUPPLEMENTAL SCALE SQ SCH (05:51)
[2017-02-17 06:09] LABS: INTERNATIONAL NORMALIZED RATIO 1.1 RATIO; PROTHROMBIN TIME - PATIENT 12.6 SEC (9.8-11.6)
[2017-02-17] MEDS: DOCUSATE SODIUM 100 MG CAP PO SCH ×2 (09:00→21:00)
[2017-02-17] MEDS: MAGNESIUM HYDROXIDE SUSP 30 ML CUP PO SCH (09:00)
[2017-02-17] MEDS: FLUOCINOLONE ACETONIDE 0.01% CR 15 GM TUBE TOPICAL SCH ×2 (09:00→21:00)
[2017-02-17] MEDS: POLYETHYLENE GLYCOL 17 GM PKG PO SCH (09:00)
[2017-02-17] MEDS: SODIUM CHLORIDE 0.9% FLUSH 10 ML FLUSH IV FLUSH SCH ×2 (09:42→21:59)
[2017-02-17] MEDS: ASPIRIN 81 MG CHEW TAB PO SCH (09:43)
[2017-02-17] MEDS: PRAVASTATIN SOD 40 MG TAB PO SCH (09:43)
[2017-02-17] MEDS: CARVEDILOL 6.25 MG TAB PO SCH ×2 (09:43→22:00)
[2017-02-17] MEDS: AMIODARONE 200 MG TAB PO SCH ×2 (09:43→21:59)
[2017-02-17] MEDS: FUROSEMIDE 40 MG TAB PO SCH ×2 (09:43→18:46)
--- NOTE | 2017-02-17 10:19 | RADRPT ---
EXAM DATE/TIME: 02/17/2017 09:03 [facility] COMPARISON: CHEST SINGLE AP, February 13, 2017, 3:19. INDICATIONS : Post chest tube removal. MEDICAL HISTORY : Hypertension. Congestive heart failure. Aortic stenosis Nonischemic cardiomyopathy SURGICAL HISTORY : CABG. ENCOUNTER: Subsequent ACUITY: 1 day PAIN SCORE: 1/10 LOCATION: Bilateral chest FINDINGS: A single view of the chest demonstrates the lungs to be symmetrically aerated without evidence of mas s, infiltrate or effusion. There are some scattered areas of atelectasis bilaterally. No evidence of pneumothorax. The heart size is stable. There is evidence of previous thoracic surgery. CONCLUSION: 1. No evidence of pneumothorax. 2. Scattered areas of atelectasis bilaterally. Favian Sharma MD on February 17, 2017 at 10:15 Board Certified Radiologist. This report was verified electronically.
[2017-02-17 11:24] LABS: HEMATOCRIT 26.2 % (39.0-51.0); MEAN CELL VOLUME 83.7 FL (80.0-100.0); MEAN CORPUSCULAR HEMOGLOBIN 27.6 PG (27.0-34.0); PLATELET COUNT 152 TH/MM3 (150-450); RED BLOOD COUNT 3.13 MIL/MM3 (4.50-5.90); REVIEW FLAG FINAL; WHITE BLOOD COUNT 5.2 TH/MM3 (4.0-11.0)
[2017-02-17] MEDS ORDERED: AMIO200T PO (11:28)
[2017-02-17] MEDS ORDERED: POTA-163 PO (11:28)
[2017-02-17] MEDS ORDERED: HYDR-3516 PO (11:28)
[2017-02-17] MEDS ORDERED: ASPI81CH25 PO (11:28)
[2017-02-17] MEDS ORDERED: DOCU1CAP39 PO (11:28)
[2017-02-17] MEDS ORDERED: FURO40TA PO (11:28)
--- NOTE | 2017-02-17 11:40 | HHI.DS ---
Discharge Summary Admission Date Feb 12, 2017 at 05:18 Discharge Date: Feb 17, 2017 Admitting Diagnosis severe Aortic stenosis (1) Left ventricular dysfunction Diagnosis: Principal (2) Severe aortic stenosis Diagnosis: Principal (3) S/P AVR (aortic valve replacement) Diagnosis: Secondary Procedures 1. Mini-Sternotomy 02/12 2. Aborted Mini-Thoracotomy 3. Aortic Valve Replacement with a 27 mm Mosaic Cinch II Tissue valve 4. Biomet Sternal Fixation. Brief History 71 male hx of severe aortic stenosis LV dysfunction EF 35-40%, underwent cardiac cath 40% stenosis RCA , c/o of fatigue PMH HLP, HTN, nonischemic cardiomyopathy, HX of PE on coumadin , parox VT, no inducible arrhythmia on EP study 2009 CBC/BMP: 02/17/17 1101 02/14/17 0330 Significant Findings Laboratory Tests Test 02/15/17 02/17/17 02/17/17 11:52 05:07 11:01 Prothrombin Time 11.9 SEC 12.6 SEC (9.8-11.6) (9.8-11.6) Red Blood Count 3.13 MIL/MM3 (4.50-5.90) Hemoglobin 8.7 GM/DL (13.0-17.0) Hematocrit 26.2 % (39.0-51.0) Imaging Last Impressions Chest X-Ray 02/17/17 0845 Signed Impressions: Service Date/Time: Friday, February 17, 2017 09:03 - CONCLUSION: 1. No evidence of pneumothorax. 2. Scattered areas of atelectasis bilaterally. Favian Sharma MD PE at Discharge GENERAL: SKIN: Warm and dry.prevena dressing to chest HEAD: Normocephalic. EYES: No scleral icterus. No injection or drainage. NECK: Supple, trachea midline. No JVD or lymphadenopathy. CARDIOVASCULAR: Regular rate and rhythm without murmurs, gallops, or rubs. RESPIRATORY: Breath sounds equal bilaterally. No accessory muscle use. GASTROINTESTINAL: Abdomen soft, non-tender, nondistended. MUSCULOSKELETAL: No cyanosis, or edema. BACK: Nontender without obvious deformity. No CVA tenderness. Hospital Course 1. Mini-Sternotomy 02/12 2. Aborted Mini-Thoracotomy 3. Aortic Valve Replacement with a 27 mm Mosaic Cinch II Tissue valve 4. Biomet Sternal Fixation. 02/13 Doing well Wean off Dobutamine Transfer CIC Maintain CT Beta paulino 02/14/17 No complaints 02/15/17 c/o dyspnea after neb treatments No BM yet 02/16/17 No complaints. His is anxious about him being discharged and desires SNF placement. +BM 02/17 doing well , remains in NSR, Coumadin continued for HX of PE INR 2-3 . Pt Condition on Discharge: Good Discharge Disposition: Discharge to SNF Discharge Instructions DIET: Follow Instructions for: Heart Healthy Diet, Coumadin (Warfarin) Diet Activities you can perform: Weight Bearing as Gerardo, Shower Only-No Bath Activities to avoid: Strenuous Activity, Driving Additional Activity Instructio: no lifting >8 lbs or gallon of milk Follow up Referrals: Appointment for Follow Up Appointment for Follow Up with Case Gandhi MD Appointment for Follow Up with Ludin Rosenbaum MD New Orders: PT/INR - 2-3 Days New Medications: Potassium Chloride ER (Potassium Chloride ER) 20 Meq Tab 20 MEQ PO DAILY Electrolyte Replacement #30 Ref 2 TAB Amiodarone (Amiodarone) 200 Mg Tab 200 MG PO Q12HR heart rhythm #28 Ref 0 TAB Aspirin (Aspirin Low Strength) 81 Mg Chew 81 MG PO DAILY Blood Clot Prevention #100 Ref 2 EA Docusate Sodium (Dok) 100 Mg Cap 100 MG PO BID Constipation #60 Ref 0 CAP Furosemide (Furosemide) 40 Mg Tab 40 MG PO DAILY edema #30 Ref 2 TAB Hydrocodone-Acetaminophen (Hydrocodone-Acetaminophen) 5-325 mg Tab 1 TAB PO Q4HR PRN PAIN SCALE 1 TO 5 #40 Ref 0 TAB Continued Medications: Carvedilol (Carvedilol) 6.25 Mg Tab 6.25 MG PO BID #60 Ref 0 TAB Diphenhydramine (Diphenhydramine) 25 Mg Cap 25 MG PO HS PRN INSOMNIA Ref 0 CAP Omeprazole (Omeprazole) 20 Mg Tab 20 MG PO DAILY #30 Ref 0 TAB Simvastatin (Simvastatin) 20 Mg Tab 20 MG PO DAILY Cholesterol Management #30 Ref 0 TAB Triamcinolone Topical (Triamcinolone Topical) 0.025 % Oint 1 APPLIC TOPICAL BID Inflammation Ref 0 GM Warfarin (Coumadin) 7.5 Mg Tab 7.5 MG PO DAILY Prevent Blood Clot #30 Ref 0 TAB Discontinued Medications: Furosemide (Furosemide) 40 Mg Tab 40 MG PO BID #60 Ref 0 TAB Warfarin (Coumadin) 5 Mg Tab 5 MG PO DAILY Blood Clot Prevention #30 Ref 0 TAB Eileen Forbes Feb 17, 2017 11:40
[2017-02-17 11:45] LABS: BICARBONATE 32.4 MEQ/L (21.0-32.0); MAGNESIUM 2.2 MG/DL (1.5-2.5); POTASSIUM 3.7 MEQ/L (3.5-5.1)
[2017-02-17] MEDS ORDERED: FERR200T PO (14:00)
[2017-02-17] MEDS ORDERED: POTASSIUM CHLORIDE 20 MEQ CONTROLLED RELEASE TAB PO ONE (14:00)
[2017-02-17] MEDS ORDERED: LISI2.5T3 PO (14:00)
[2017-02-17] MEDS: WARFARIN SOD 7.5 MG TAB PO SCH (16:40)
[2017-02-17] MEDS: SENNOSIDES 8.6 MG TAB PO SCH (21:00)
[2017-02-17] MEDS: diphenhydrAMINE HCL 25 MG CAP PO PRN (22:48)
[2017-02-18] VITALS (27 sets, daily range): BP systolic 98–118; BP diastolic 58–73; PULSE 82–100; RESP 16–17; TEMP 98–98.8; O2SAT 95–97
[2017-02-18 04:44] LABS: INTERNATIONAL NORMALIZED RATIO 1.4 RATIO; PROTHROMBIN TIME - PATIENT 15.6 SEC (9.8-11.6)
[2017-02-18] MEDS: PANTOPRAZOLE SOD 40 MG DELAYED RELEASE TAB PO SCH (06:37)
--- NOTE | 2017-02-18 08:54 | PD.CAR.PN ---
CVT Progress Note Subjective/Hospital Course: 71 yo with progressive SOB and severe aortic stenosis and left ventricular dysfunction 02/12 SURGICAL PROCEDURE 1. Mini-Sternotomy 2. Aortic Valve Replacement with a 27 mm Mosaic Cinch II Tissue valve 3. Biomet Sternal Fixation. 02/13 Doing well Wean off Dobutamine Transfer CIC Maintain CT Beta paulino 02/14/17 No complaints 02/15/17 c/o dyspnea after neb treatments No BM yet 02/16/17 No complaints. His is anxious about him being discharged and desires SNF placement. +BM 02/18 waiting on SNF bed, pt has no complaints, needs assistance to get OOB VSS, works daily from 11am to 8 pm , has no help at home, they have requested SNF placement we have spoken with case management Objective: GENERAL: SKIN: Warm and dry. incision intact and well approximated to right chest and mid sternum HEAD: Normocephalic. EYES: No scleral icterus. No injection or drainage. NECK: Supple, trachea midline. No JVD or lymphadenopathy. CARDIOVASCULAR: Regular rate and rhythm without murmurs, gallops, or rubs. RESPIRATORY: Breath sounds equal bilaterally. No accessory muscle use. GASTROINTESTINAL: Abdomen soft, non-tender, nondistended. MUSCULOSKELETAL: No cyanosis, or edema. BACK: Nontender without obvious deformity. No CVA tenderness. Vital Signs Date Time Temp Pulse Resp B/P Pulse Ox O2 Delivery O2 Flow Rate FiO2 02/18/17 07:40 98.7 92 17 118/73 97 02/18/17 07:00 92 02/18/17 06:00 96 02/18/17 05:00 90 02/18/17 04:00 90 02/18/17 03:00 98.1 91 16 115/60 96 02/18/17 03:00 91 02/18/17 02:00 82 02/18/17 01:00 82 02/18/17 00:00 98.0 84 16 98/65 96 02/18/17 00:00 84 02/17/17 23:00 86 02/17/17 22:00 90 02/17/17 21:00 90 02/17/17 20:30 98.8 89 18 115/65 95 02/17/17 20:00 88 02/17/17 19:00 92 02/17/17 18:00 78 02/17/17 17:39 97 21 02/17/17 17:00 74 02/17/17 16:43 98.3 78 18 120/79 97 02/17/17 16:00 80 02/17/17 15:00 82 02/17/17 14:00 76 02/17/17 13:00 81 02/17/17 12:05 91.1 81 20 116/72 100 02/17/17 12:00 84 02/17/17 11:00 80 02/17/17 10:00 84 02/17/17 09:00 82 Labs: Laboratory Tests Test 02/18/17 03:23 Prothrombin Time 15.6 SEC (9.8-11.6) Prothromb Time International 1.4 RATIO Ratio Result Diagram: 02/17/17 1101 02/17/17 1101 (1) Left ventricular dysfunction (2) Severe aortic stenosis (3) S/P AVR (aortic valve replacement) Plan: continue pulm toileting nebs ezpap acapella waiting on rehab bed Eileen Forbes Feb 18, 2017 08:54
[2017-02-18] MEDS: SODIUM CHLORIDE 0.9% FLUSH 10 ML FLUSH IV FLUSH SCH ×2 (08:56→21:43)
[2017-02-18] MEDS: ASPIRIN 81 MG CHEW TAB PO SCH (08:56)
[2017-02-18] MEDS: AMIODARONE 200 MG TAB PO SCH ×2 (08:56→21:42)
[2017-02-18] MEDS: FUROSEMIDE 40 MG TAB PO SCH ×2 (08:56→17:58)
[2017-02-18] MEDS: CARVEDILOL 6.25 MG TAB PO SCH ×2 (08:56→21:42)
[2017-02-18] MEDS: PRAVASTATIN SOD 40 MG TAB PO SCH ×2 (08:57→21:50)
[2017-02-18] MEDS: DOCUSATE SODIUM 100 MG CAP PO SCH ×2 (08:57→21:00)
[2017-02-18] MEDS: FLUOCINOLONE ACETONIDE 0.01% CR 15 GM TUBE TOPICAL SCH ×2 (08:57→21:00)
[2017-02-18] MEDS: POLYETHYLENE GLYCOL 17 GM PKG PO SCH (08:57)
[2017-02-18] MEDS: MAGNESIUM HYDROXIDE SUSP 30 ML CUP PO SCH (08:57)
[2017-02-18] MEDS: ACETAMINOPHEN 325 MG TAB PO PRN (14:50)
[2017-02-18] MEDS: WARFARIN SOD 7.5 MG TAB PO SCH (17:58)
[2017-02-18] MEDS: SENNOSIDES 8.6 MG TAB PO SCH (21:00)
[2017-02-18] MEDS: ACETAMINOPHEN/HYDROcodone 325 MG/5 MG TAB PO PRN (21:44)
[2017-02-18] MEDS: diphenhydrAMINE HCL 25 MG CAP PO PRN (22:59)
[2017-02-19] VITALS (18 sets, daily range): BP systolic 99–109; BP diastolic 60–71; PULSE 80–96; RESP 16–20; TEMP 97.5–98.7; O2SAT 96–98
[2017-02-19] MEDS: PANTOPRAZOLE SOD 40 MG DELAYED RELEASE TAB PO SCH (06:13)
[2017-02-19 06:49] LABS: INTERNATIONAL NORMALIZED RATIO 1.5 RATIO; PROTHROMBIN TIME - PATIENT 16.8 SEC (9.8-11.6)
[2017-02-19] MEDS: SODIUM CHLORIDE 0.9% FLUSH 10 ML FLUSH IV FLUSH SCH (08:33)
[2017-02-19] MEDS: ASPIRIN 81 MG CHEW TAB PO SCH (08:33)
[2017-02-19] MEDS: CARVEDILOL 6.25 MG TAB PO SCH (08:33)
[2017-02-19] MEDS: AMIODARONE 200 MG TAB PO SCH (08:33)
[2017-02-19] MEDS: FUROSEMIDE 40 MG TAB PO SCH (08:34)
[2017-02-19] MEDS: MAGNESIUM HYDROXIDE SUSP 30 ML CUP PO SCH (08:34)
[2017-02-19] MEDS: DOCUSATE SODIUM 100 MG CAP PO SCH (08:34)
[2017-02-19] MEDS: PRAVASTATIN SOD 40 MG TAB PO SCH (08:34)
[2017-02-19] MEDS: POLYETHYLENE GLYCOL 17 GM PKG PO SCH (08:35)
[2017-02-19] MEDS: FLUOCINOLONE ACETONIDE 0.01% CR 15 GM TUBE TOPICAL SCH (08:35)
--- NOTE | 2017-02-19 09:13 | PD.CAR.PN ---
CVT Progress Note Subjective/Hospital Course: 71 yo with progressive SOB and severe aortic stenosis and left ventricular dysfunction 02/12 SURGICAL PROCEDURE 1. Mini-Sternotomy 2. Aortic Valve Replacement with a 27 mm Mosaic Cinch II Tissue valve 3. Biomet Sternal Fixation. 02/13 Doing well Wean off Dobutamine Transfer CIC Maintain CT Beta paulino 02/14/17 No complaints 02/15/17 c/o dyspnea after neb treatments No BM yet 02/16/17 No complaints. His is anxious about him being discharged and desires SNF placement. +BM 02/18 waiting on SNF bed, pt has no complaints, needs assistance to get OOB VSS, works daily from 11am to 8 pm , has no help at home, they have requested SNF placement we have spoken with case management 02/19 waiting on appeals for SNF placement pt needs assistance with getting OOB PT re-eval done Objective: GENERAL: SKIN: Warm and dry. incisions intact to chest HEAD: Normocephalic. EYES: No scleral icterus. No injection or drainage. NECK: Supple, trachea midline. No JVD or lymphadenopathy. CARDIOVASCULAR: Regular rate and rhythm without murmurs, gallops, or rubs. RESPIRATORY: Breath sounds equal bilaterally. No accessory muscle use. GASTROINTESTINAL: Abdomen soft, non-tender, nondistended. MUSCULOSKELETAL: No cyanosis, or edema. BACK: Nontender without obvious deformity. No CVA tenderness. Vital Signs Date Time Temp Pulse Resp B/P Pulse Ox O2 Delivery O2 Flow Rate FiO2 02/19/17 08:31 98.7 89 18 109/71 98 02/19/17 08:00 90 02/19/17 07:00 90 02/19/17 06:00 87 02/19/17 05:00 90 02/19/17 04:00 90 02/19/17 03:00 97.5 90 16 108/60 96 02/19/17 03:00 86 02/19/17 02:00 90 02/19/17 01:00 88 02/19/17 00:00 86 02/18/17 23:00 92 02/18/17 23:00 98.4 89 16 108/62 96 02/18/17 22:00 92 02/18/17 21:00 92 02/18/17 20:00 98.4 94 16 114/58 97 02/18/17 20:00 94 02/18/17 19:00 90 02/18/17 18:00 86 02/18/17 17:02 97 21 02/18/17 17:00 84 02/18/17 16:00 87 02/18/17 15:00 98.8 86 16 110/69 97 02/18/17 15:00 100 02/18/17 14:00 92 02/18/17 13:00 90 02/18/17 12:00 89 02/18/17 11:00 86 02/18/17 11:00 98.5 89 17 112/71 95 02/18/17 10:15 91 02/18/17 09:49 97 21 Labs: Laboratory Tests Test 02/19/17 05:00 Prothrombin Time 16.8 SEC (9.8-11.6) Prothromb Time International 1.5 RATIO Ratio Result Diagram: 02/17/17 1101 02/17/17 1101 (1) Left ventricular dysfunction (2) Severe aortic stenosis (3) S/P AVR (aortic valve replacement) Plan: continue pulm toileting nebs ezpap acapella BP stable waiting on SNF placement bed Eileen Forbes Feb 19, 2017 09:12
== END 2017-02-19 15:30 | DRG 219 ==
LOC: HSDI 02-12 05:18 → HCVR 02-12 13:35 → HCIN 02-13 18:06
PROVIDERS: ADMIT Thoracic Surgery (Cardiothoracic Vascular Surgery); ATTEND Thoracic Surgery (Cardiothoracic Vascular Surgery)
PROC: B246ZZ4 Ultrasonography of Right and Left Heart, Transesophageal (ICD-10-PCS; 2017-02-12)
PROC: 02RF08Z Replacement of Aortic Valve with Zooplastic Tissue, Open Approach (ICD-10-PCS; principal; 2017-02-12 07:05)
PROC: 5A1221Z Performance of Cardiac Output, Continuous (ICD-10-PCS; 2017-02-12 07:05)
DX: I35.0 Nonrheumatic aortic (valve) stenosis (principal); J98.59 Other diseases of mediastinum, not elsewhere classified; I42.9 Cardiomyopathy, unspecified; I31.0 Chronic adhesive pericarditis; J98.4 Other disorders of lung; I50.1 Left ventricular failure, unspecified; I11.0 Hypertensive heart disease with heart failure; E78.5 Hyperlipidemia, unspecified; J45.909 Unspecified asthma, uncomplicated; K21.9 Gastro-esophageal reflux disease without esophagitis; I25.10 Atherosclerotic heart disease of native coronary artery without angina pectoris; Z79.01 Long term (current) use of anticoagulants; Z86.711 Personal history of pulmonary embolism
CPT/HCPCS: 36430; 71010; 76937; 80048; 82948; 83735; 85014; 85025; 85027; 85610; 86850; 86900; 86901; 86920; 87015; 87070; 87102; 87116; 87176; 87205; 87206; 88305; 88311; 93005; 93318; 94002; 94150; 94640; 94664; 94667; 94668; C1713; C9290; J0131; J0171; J0690; J1100; J1250; J1644; J1815; J1885; J2150; J2250; J2270; J2370; J2405; J2710; J2720; J3010; J3370; J3475; J3480; J7050; J7060; J7120; P9016; P9045; P9047